=== PATIENT | male | born 1955 | race Caucasian/White ===

== ENCOUNTER 2021-03-16 07:03 | Day surgery (SDC) | payer OTHER ==
[2021-03-16] MEDS ORDERED: LIDOCAINE 4% TOP SOLUTION TOP ONE (07:30)
[2021-03-16] MEDS: Ringers Lactate 1,000 ML IV ONE ×2 (07:30→08:16)
[2021-03-16] MEDS ORDERED: Phenylephrine HCl 10 MG/ML 1 ML VIAL ONE (07:37)
[2021-03-16] MEDS ORDERED: GLYCOPYRROLATE 0.2 MG/ML SYR ONE ×2 (07:37→08:06)
[2021-03-16] MEDS ORDERED: LIDOCAINE 1% MPF 30 ML VIAL ONE ×2 (07:38→08:05)
[2021-03-16] MEDS ORDERED: LIDOCAINE VISCOUS 2% SOLN 15 ML UDC ONE (07:39)
[2021-03-16] MEDS ORDERED: propofoL 200 MG/20 ML VIAL IV ONE ×2 (08:05→08:52)
[2021-03-16] MEDS ORDERED: MIDAZOLAM HCL 2 MG/2 ML INJ ONE (08:05)
[2021-03-16] MEDS ORDERED: LIDOCAINE 4% TOP SOLUTION ONE (08:09)
--- NOTE | 2021-03-16 08:47 | P.PN ---
Date of Service: 03/16/21 Patient is 66 years of age was evaluated by me on February 17, 2021 the possibility of right endobronchial lesion please had no complaints and was scheduled for a bronchoscopy on 03/16/2021 Patient denies any complaints no coughing wheezing shortness of breath On examination is alert oriented prior to procedure chest shows diminished air entry cardiovascular system os sounds normal abdomen soft Patient was scheduled to have a bronchoscopy today otherwise no change from the H and P dated 02/09/2021
--- NOTE | 2021-03-16 08:48 | P.OP ---
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
--- NOTE | 2021-03-16 09:25 | RAD REPORT ---
EXAM DESCRIPTION: RAD - Fluoroscopy <1 Hour - 03/16/2021 9:09 am CLINICAL HISTORY: Device placement bronchoscope placement FINDINGS: A bronchoscope placed into the right upper lobe. Procedure performed by Dr. Florentino
--- NOTE | 2021-03-16 09:58 | RAD REPORT ---
EXAM DESCRIPTION: Sabiha Single View03/16/2021 9:51 am CLINICAL HISTORY: Device placement bronchoscopy IMPRESSION: A pneumothorax is not seen status post right bronchoscopy.
[2021-03-16 10:18] VITALS: BP 108/59; O2SAT 95
[2021-03-16 10:26] VITALS: TEMP 97.6
== END 2021-03-16 10:05 | disposition home or self-care (01) ==
LOC: OR 07:03
PROVIDERS: ATTEND Internal Medicine Sleep Medicine
PROC: 0BD48ZX Extraction of Right Upper Lobe Bronchus, Via Natural or Artificial Opening Endoscopic, Diagnostic (ICD-10-PCS; 2021-03-16)
PROC: 0B9C8ZX Drainage of Right Upper Lung Lobe, Via Natural or Artificial Opening Endoscopic, Diagnostic (ICD-10-PCS; principal; 2021-03-16 08:00)
DX: R91.1 Solitary pulmonary nodule (principal); Z20.822 Contact with and (suspected) exposure to COVID-19
CPT/HCPCS: 88108 ×2; 88305 ×2; 87015; 87206; 87116; 87102; 71045; 31624; 31625; U0002; J2704 ×2; J2370; J7120; 76000; J2250

== ENCOUNTER 2021-12-02 10:18 | Inpatient (IN) | payer OTHER ==
--- OUTSIDE RECORDS SUMMARY | 2021-12-02 10:21 | XMS REPORT | Continuity of Care Document ---
:1955 Author Organization [facility] t Address [address] [place] [address] Care Team Providers Name Role Phone Hansel WINSLOW, A Primary Care Physician Hansel WINSLOW, A Attending Clinician Jimmy Attending Clinician Unavailable DEBORAH Attending Clinician Unavailable MD DEBORAH Y.H. Attending Clinician Unavailable Jimmy Admitting Clinician Unavailable DEBORAH Admitting Clinician Unavailable MD DEBORAH Y.H. 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 Formattin g of this note might be different from the original. Added automatic ally from request for surgery [id number] Hypertensi Hypertensi Disease Active U nivers on on ity of [facility] Arthritis Arthritis Disease Active Uni vers ity of [facility] Back pain Back pain Disease Active Overview: Univers Formattin ity of g of this [place] note Medical might be Branch different from the original. spinal cord stimulato r (not using now) and morphine pump Allergies, Adverse Reactions, Alerts Allergy Allergy Status Severity Reaction(s) Onset Inactive Treating Comm ents Source Name Type Date Date Clinician No Known DA Active U [facility] Allergie 1-14 [place] s 00:00: [address] No Known DA Active U [facility] Contrast [facility]- [place] Allergie 00:00: [address] No Known DA Active U [facility] Drug 2 [place] Allergie 00:00: [address] No Known DA Active U [facility] Food 2- [place] Allergie 00:00: [address] No Known DA Active U [facility] Other 2- [place] Allergie 00:00: [address] No Known DA Active U [facility] Drug 318 [place] Intolera 00:00: [address] Social History Social Habit Start Date Stop Date Quantity Comments Source History of tobacco Cigarette Smoker University of use [facility] History SDNC University o f Alcohol Frequency [facility] History SDOH University o f Alcohol Std Drinks [facility] History [facility] University o f Alcohol Binge [facility] [place] Alcohol intake 2021-12-02 2021-12-02 Current drinker Unive rsity of 00:00:00 00:00:00 of alcohol [facility] (finding) Branch Tobacco Comment 2021-07-16 2021-07-16 1 pack x 50 yrs Univ ersity of 00:00:00 00:00:00 [facility] Alcohol Comment 2017-02-22 2017-02-22 occasional Universit y of 00:00:00 00:00:00 alcohol use [facility] Cigarettes smoked 2015-01-05 2015-01-05 Univers ity of current (pack per 00:00:00 00:00:00 [facility] ) - Reported Branch Cigarette 2015-01-05 2015-01-05 University of pack-years 00:00:00 00:00:00 [facility] Tobacco use and 2015-01-05 2015-01-05 Former user Universi ty of exposure 00:00:00 00:00:00 [facility] Sex [birth year] Universit y of 00:00:00 00:00:00 [facility] Smoking Status Start Date Stop Date Source Current every day smoker 2015-01-05 00:00:00 Uni versity of [facility] Medications Ordered Filled Start Stop Current Ordering Indication Dosage Frequency Signature Comments Components Source Medication Medication Date Date Medication? Clinician (SIG) Name Name pregabalin Yes 200mg Take 200 Un kamran (LYRICA) 75 5-12 mg by ity of mg capsule 08:58: mouth 3 [place] 11 (three) Medical times Branch daily. pregabalin Yes 200mg Take 200 Un kamran (LYRICA) 75 5-12 mg by ity of mg capsule 08:58: mouth 3 [place] 11 (three) Medical times Branch daily. tiZANidine 2020-07 Yes 4mg Take 4 mg Un kamran (ZANAFLEX) 2-26 by mouth 3 ity of 4 mg 13:09: (three) [place] capsule 20 times Medical daily. Branch MORPHINE 2020-07 Yes Inject as Uni vers SULFATE 2-26 directed. ity of (MORPHINE 13:09: Has pain [place] INJECTION) 20 pump Medical Branch etodolac 2020-07 Yes 400mg Take 400 Univ ers (LODINE) 2-26 mg by ity of 400 mg 13:09: mouth 2 [place] tablet 20 (two) Medical times Branch daily. HYDROcodone 2020-07 Yes 1{tbl} Take 1 Tab Univers -acetaminop 2-26 by mouth ity of hen (NORCO) 13:09: every 6 [place] 10-325 mg 20 (six) Medical tablet hours as Branch needed. tiZANidine 2020-07 Yes 4mg Take 4 mg Un kamran (ZANAFLEX) 2-26 by mouth 3 ity of 4 mg 13:09: (three) [place] capsule 20 times Medical daily. Branch MORPHINE 2020-07 Yes Inject as Uni vers SULFATE 2-26 directed. ity of (MORPHINE 13:09: Has pain [place] INJECTION) 20 pump Medical Branch etodolac 2020-07 Yes 400mg Take 400 Univ ers (LODINE) 2-26 mg by ity of 400 mg 13:09: mouth 2 [place] tablet 20 (two) Medical times Branch daily. HYDROcodone 2020-07 Yes 1{tbl} Take 1 Tab Univers -acetaminop 2-26 by mouth ity of hen (NORCO) 13:09: every 6 [place] 10-325 mg 20 (six) Medical tablet hours as Branch needed. amiodarone 2020-07 Yes 200mg Take 1 Univ ers 200 mg 2-26 tablet by ity of tablet 00:00: mouth [place] 00 daily. Medical Branch amiodarone 2020-07 Yes 200mg Take 1 Univ ers 200 mg 2-26 tablet by ity of tablet 00:00: mouth [place] 00 daily. Medical Branch levoFLOXaci 2020-07 Yes [id number] 500mg Take 1 Univers n 500 mg 1-16 tablet by ity of tablet 00:00: mouth [place] 00 every 24 Medical (twenty-fo Branch ur) hours. levoFLOXaci 2020-07 Yes [id number] 500mg Take 1 Univers n 500 mg 1-16 tablet by ity of tablet 00:00: mouth [place] 00 every 24 Medical (twenty-fo Branch ur) hours. metoprolol 2020-07 Yes [id number] 100mg Take 1 Univers succinate 1-08 tablet by ity o f XL 100 mg 00:00: mouth [place] 24 hr 00 every Medical tablet morning. Branch Call clinic for appointmen t. Needs appt for further refills. metoprolol 2020-07 Yes [id number] 100mg Take 1 Univers succinate 1-08 tablet by ity o f XL 100 mg 00:00: mouth [place] 24 hr 00 every Medical tablet morning. Branch Call clinic for appointmen t. Needs appt for further refills. HYDROCHLORO 2020-07 Yes [id number] TAKE 1 Univers THIAZIDE 25 0-20 TABLET BY ity of mg tablet 00:00: MOUTH [place] 00 EVERY DAY Medical Branch TRAZODONE 2020-07 Yes [id number] TAKE 1 U nivers 100 mg 0-20 TABLET BY ity of tablet 00:00: MOUTH AT [place] 00 BEDTIME. Medical Branch HYDROCHLORO 2020-07 Yes [id number] TAKE 1 Univers THIAZIDE 25 0-20 TABLET BY ity of mg tablet 00:00: MOUTH [place] 00 EVERY DAY Medical Branch TRAZODONE 2020-07 Yes [id number] TAKE 1 U nivers 100 mg 0-20 TABLET BY ity of tablet 00:00: MOUTH AT [place] 00 BEDTIME. Medical [place] Immunizations Ordered Filled Immunization Date Status Comments [facility] e Immunization Name Name SARS-COV-2 COVID-19 2020-10-27 Completed Unive rsity of MODERNA VACCINE 00:00:00 [facility] SARS-COV-2 COVID-19 2020-10-27 Completed Unive rsity of MODERNA VACCINE 00:00:00 [facility] SARS-COV-2 COVID-19 2020-10-02 Completed Unive rsity of MODERNA VACCINE 00:00:00 [facility] SARS-COV-2 COVID-19 2020-10-02 Completed Unive rsity of MODERNA VACCINE 00:00:00 [facility] Influenza Virus 2020-05-08 Completed Universit y of Vaccine Quad .5 mL 00:00:00 [facility] 6+ [place] Influenza Virus 2020-05-08 Completed Universit y of Vaccine Quad .5 mL 00:00:00 [facility] 6+ [place] Branch TDAP 2015-12-24 Completed University 00:00:00 [facility] TDAP 2015-12-24 Completed [facility] 00:00:00 [facility] Vital Signs Vital Name Observation Time Observation Value Comments Source Systolic blood 2021-12-02 14:40:00 94 mm[Hg] Univer sity of pressure [facility] Diastolic blood 2021-12-02 14:40:00 55 mm[Hg] Unive rsity of pressure [facility] Heart rate 2021-12-02 14:40:00 75 /min [facility] Body temperature 2021-12-02 14:40:00 36.22 Lizabeth [facility] Respiratory rate 2021-12-02 14:40:00 18 /min [facility] Body weight 2021-12-02 14:40:00 65.227 kg [facility] BMI 2021-12-02 14:40:00 19.50 kg/m2 [facility] Oxygen saturation in 2021-12-02 14:40:00 94 /min [facility] Arterial blood by [facility] Pulse oximetry Branch Procedures This patient has no known procedures. Plan of Care Planned Activity Planned Date Details Comments Source Encounters Start End Encounter Admission Attending Care Care Encounter Source Date/Time Date/Time Type Type Clinicians Facility Department ID 2021-12-02 2021-12-02 Office Hansel PAKAN [id number] [facility] 09:00:00 09:20:00 Visit Piedad [id number] [id number] Soterobharat wilder ANURAG [id number] Oh dical NAL [address] [place] [address] 2021-08-07 2021-08-08 Inpatient KHUSHBU BrushWU TELE [id number] [facility] 04:50:00 12:40:[id number] [facility] 2021-08-07 2021-08-08 Inpatient KHUSHBU BrushWOmar TELE [id number] [facility] 04:50:00 12:40:[address] [facility] 2021-06-25 2021-06-25 Outpatient [facility] [id number] [place] 00:00:00 00:00:[address] 2021-05-17 2021-06-01 Inpatient [facility] 021 [id number] [place] 00:00:00 00:00:00 [place] [address] 2021-05-27 2021-05-27 Outpatient [facility] [id number] [place] 00:00:00 00:00:00 EDWARD [address] 2021-05-13 2021-05-13 Outpatient [facility] [id number] [place] 00:00:00 00:00:00 EDWARD [address] 2021-05-06 2021-05-06 Outpatient [facility] [id number] [place] 00:00:00 00:00:00 EDWARD [address] 2021-04-12 2021-04-12 Outpatient [facility] [id number] [place] 00:00:00 00:00:00 EDWARD [address] 2021-04-08 2021-04-08 Outpatient CABRERAFORMERLY [facility], [facility] [id number] [place] 00:00:00 00:00:00 EDWARD [address] 2021-04-08 2021-04-08 Outpatient CABRERA, [facility] [id number] [place] 00:00:00 00:00:00 DANILO 6[address] [facility] 2021-04-08 2021-04-08 Outpatient [facility], [facility] [id number] [place] 00:00:00 00:00:00 DANILO [address] [facility] 2021-04-08 2021-04-08 Outpatient [facility], [facility] [id number] [place] 00:00:00 00:00:00 DANILO 019 [facility] 2021-04-08 2021-04-08 Outpatient [facility], [facility] [id number] [place] 00:00:00 00:00:00 DANILO [address] Results Test Description Test Time Test Comments Results Result Comments Source BASIC METABOLIC PANEL 2021-08-08 06:19:00 Test Item Value Reference Range Interpretation Comme nts SODIUM (test code = NA) 131 MMOL/L 137-145 L POTASSIUM (test code = K) 3.6 MMOL/L 3.5-5.1 N CHLORIDE (test code = CL) 98 MMOL/L 98-107 N CARBON DIOXIDE (test code = CO2) 27 MMOL/L 22-30 N ANION GAP (test code = GAP) 10 MMOL/L 14-24 L GLUCOSE (test code = GLU) 117 MG/DL 74-106 H BLOOD UREA NITROGEN (test code = 11 MG/DL 9-20 N BUN) GLOMERULAR FILTRATION RATE (test > 60 Reporting units: ml/min/1.73 code = GFR) m2 (Modified M DRD Formula)Referen ce Range: > or = 60 ml/min/1.7 3 m2 CREATININE (test code = CREAT) 0.50 MG/DL 0.66-1.25 L CALCIUM (test code = CA) 9.1 MG/DL 8.4-10.2 N CBC W/AUTO [id number] 06:15:00 Test Item Value Reference Range Interpretation Comments WHITE BLOOD CELL (test code = 18.2 K/MM3 3.8-9.8 H WBC) RED BLOOD CELL (test code = 3.81 M/MM3 3.95-5.67 L RBC) HEMOGLOBIN (test code = HGB) 12.2 G/DL 12.4-16.7 L HEMATOCRIT (test code = HCT) 36.8 % 35.9-49.5 N MEAN CELL VOLUME (test code = 97 fL 81.7-96.1 H MCV) MEAN CELL HGB (test code = MCH) 32.0 pg 27.6-33.2 N MEAN CELL HGB CONCETRATION 33.2 % 32.9-35.5 N (test code = MCHC) RED CELL DISTRIBUTION WIDTH 14.9 % 12.1-15.2 N (test code = RDW) PLATELET COUNT (test code = 479 K/MM3 129-368 H PLT) MEAN PLATELET VOLUME (test code 9.3 fl 7.4-10.4 N = MPV) NEUTROPHIL % (test code = NT%) 86.8 % 43-75 H IMMATURE GRANULOCYTE % (test 0.6 % 0.0-2.0 N code = IG%) LYMPHOCYTE % (test code = LY%) 4.1 % 14-44 L MONOCYTE % (test code = MO%) 8.1 % 4-13 N EOSINOPHIL % (test code = EO%) 0.1 % 0-6 N BASOPHIL % (test code = BA%) 0.3 % 0-2 N NUCLEATED RBC % (test code = 0.0 % 0-1.0 N NRBC%) NEUTROPHIL # (test code = NT#) 15.75 K/mm3 2.0-7.6 H IMMATURE GRANULOCYTE # (test 0.10 x10 3/uL 0-0.03 H code = IG#) LYMPHOCYTE # (test code = LY#) 0.75 K/mm3 1.0-3.8 L MONOCYTE # (test code = MO#) 1.47 K/mm3 0.1-0.8 H EOSINOPHIL # (test code = EO#) 0.02 K/mm3 0.0-0.2 N BASOPHIL # (test code = BA#) 0.06 K/mm3 0.0-0.2 N NUCLEATED RBC # (test code = 0.00 K/mm3 0.0-0.1 N NRBC#) [id number] 06:57:00 Test Item Value Reference Range Interpretation Comments ACT-ISTAT (test code = ACTI) 243 SEC 74-137 H BASIC METABOLIC [id number] 06:14:00 Test Item Value Reference Range Interpretation Comments SODIUM (test code = 138 MMOL/L 137-145 N NA) POTASSIUM (test code = 4.2 MMOL/L 3.5-5.1 N K) CHLORIDE (test code = 101 MMOL/L 98-107 N CL) CARBON DIOXIDE (test 34 MMOL/L 22-30 H code = CO2) GLUCOSE (test code = 95 MG/DL 74-106 N GLU) BLOOD UREA NITROGEN 14 MG/DL 9-20 N (test code = BUN) GLOMERULAR FILTRATION > 60 Report ing units: RATE (test code = GFR) ml/mi n/1.73 m2 (Modified MDRD Formula)Referen ce Range: > or = 6 0 ml/min/1.73 m2 CREATININE (test code 0.70 MG/DL 0.66-1.25 N = CREAT) CALCIUM (test code = 9.9 MG/DL 8.4-10.2 N CA) LIPID PROFILE (CORONARY RISK)2021-08-07 06:14:00 Test Item Value Reference Range Interpretation Comments TRIGLYCERIDES (test 116 MG/DL 150-199 L TRIGLYCE RIDES code = TRIG) REFERENCE RANGE:Normal: < 150 mg/dLBorderline High: 150-199 mg/dLHi gh: 200-499 mg/dLVe ry High: >=500 mg/ dL CHOLESTEROL (test code 162 MG/DL <200 = CHOL) HDL CHOLESTEROL (test 42 MG/DL 40-59 N code = HDL) LIPOPROTEIN LDL (test 82 MG/DL 0-99 N code = LDL) OPTIMAL........ .<100 mg/dLNEAR OPTIMAL/ABOVE OPTIMAL........ .100-12 9 mg/dL BORDERLINE HIGH.........13 0-159 mg/dL HIGH.........16 0-189 mg/dL VERY HIGH...... ...>/= 190 mg/dL [id number] 06:14:00 Test Item Value Reference Range Interpretation Comments MAGNESIUM (test code = MAG) 2.0 MG/DL 1.6-2.3 N PROTHROMBIN [id number] 06:03:00 Test Item Value Reference Range Interpretation Comments PROTHROMBIN TIME 12.4 SECONDS 9.5-12.7 N PATIENT (test code = PTP) INTERNATIONAL NORMAL 1.1 0.86-1.14 N The INR is to be RATIO (test code = used only for INR) monitoring oral anticoagulantth erap y. INDICATION I NR VALUE ---- ---- ---- -------1. Prophylaxis, de ep venous thrombos is, including hig h risk surgery. 2.0 - 3.0 2. Prophylaxis, de ep venous thrombos is, hip surgery, treatment for d eep venous thrombosis or pulmonary prevention of systemic emboli sm in patients wit h valvular heart disease, atrial fibrillation, tissue heart va lve, or acute myocar dial infarction. 2.0 - 3 .0 3. Mechanical prosthesis hear t valves, recurrent syste kris embolism. 3.0 - 4.5 PTT [id number] 06:03:00 Test Item Value Reference Range Interpretation Comments PTT ACTIVATED (test code = APTT) 37.5 SECONDS 25.1-36.5 H CBC W/AUTO [id number] 06:01:00 Test Item Value Reference Range Interpretation Comments WHITE BLOOD CELL (test code = 11.6 K/MM3 3.8-9.8 H WBC) RED BLOOD CELL (test code = 4.14 M/MM3 3.95-5.67 N RBC) HEMOGLOBIN (test code = HGB) 13.1 G/DL 12.4-16.7 N HEMATOCRIT (test code = HCT) 40.4 % 35.9-49.5 N MEAN CELL VOLUME (test code = 98 fL 81.7-96.1 H MCV) MEAN CELL HGB (test code = MCH) 31.6 pg 27.6-33.2 N MEAN CELL HGB CONCETRATION 32.4 % 32.9-35.5 L (test code = MCHC) RED CELL DISTRIBUTION WIDTH 15.1 % 12.1-15.2 N (test code = RDW) PLATELET COUNT (test code = 560 K/MM3 129-368 H PLT) MEAN PLATELET VOLUME (test code 8.9 fl 7.4-10.4 N = MPV) NEUTROPHIL % (test code = NT%) 77.5 % 43-75 H IMMATURE GRANULOCYTE % (test 0.7 % 0.0-2.0 N code = IG%) LYMPHOCYTE % (test code = LY%) 7.9 % 14-44 L MONOCYTE % (test code = MO%) 11.0 % 4-13 N EOSINOPHIL % (test code = EO%) 1.5 % 0-6 N BASOPHIL % (test code = BA%) 1.4 % 0-2 N NUCLEATED RBC % (test code = 0.0 % 0-1.0 N NRBC%) NEUTROPHIL # (test code = NT#) 8.98 K/mm3 2.0-7.6 H IMMATURE GRANULOCYTE # (test 0.08 x10 3/uL 0-0.03 H code = IG#) LYMPHOCYTE # (test code = LY#) 0.92 K/mm3 1.0-3.8 L MONOCYTE # (test code = MO#) 1.27 K/mm3 0.1-0.8 H EOSINOPHIL # (test code = EO#) 0.17 K/mm3 0.0-0.2 N BASOPHIL # (test code = BA#) 0.16 K/mm3 0.0-0.2 N NUCLEATED RBC # (test code = 0.00 K/mm3 0.0-0.1 N NRBC#) COVID 19 Asymptomatic IH [id number] 05:04:00 Test Item Value Reference Range Interpretation Comments COVID 19 NEGATIVE Negative "Negative resul ts from Asymptomatic IH AG patients with symptom (test code = onset beyondfiv e days, COVNONPUIAG) should be kandy anson as presumptive, andconfirmation with a molecular assay , if necessary forpa tient management may be performed. Nega tive results do notr ule out COVID-19 and sh ould not be used as the sole basisfor treatm ent or patient managem ent decisions, includinginfect ion control decisio ns. Negative result s should beconsidered in the context of a pa tients recent exposure s,history, and the presenc e of clinical signs and symptomsconsist ent with COVID-19.This t est detects both vi able andnon-viable S ARS-CoV and SARS CoV-2. Test performance dep endson the amount of virus (antigen) in the sample." Spec Comments: [id number] (COVID-19) RNA [Presence] in Respiratory specimen by VIRGINIE with probe [id number] 00:29:52 Test Item Value Reference Range Interpretation Comments SARS-CoV-2 (COVID-19) RNA Not detected Not-Detected [Presence] in Respiratory specimen by VIRGINIE with probe detection (test code = 62762-2) Whether patient is employed in a healthcare setting (test code = 98924-5) Whether the patient has symptoms related to condition of interest (test code = 30023-1) Patient was hospitalized because of this condition (test code = 73160-2) Whether the patient was admitted to intensive care unit (ICU) for condition of interest (test code = 88066-0) Whether patient resides in a congregate care setting (test code = 31189-5) SARS-CoV-2 (COVID-19) RNA [Presence] in Respiratory specimen by VIRGINIE with probe [id number] 15:40:55 Test Item Value Reference Range Interpretation Comments SARS-CoV-2 (COVID-19) RNA Not detected Not-Detected [Presence] in Respiratory specimen by VIRGINIE with probe detection (test code = 84814-8) Whether patient is employed in a healthcare setting (test code = 19312-7) Whether the patient has symptoms related to condition of interest (test code = 64470-5) Patient was hospitalized because of this condition (test code = 80879-5) Whether the patient was admitted to intensive care unit (ICU) for condition of interest (test code = 17441-0) Whether patient resides in a congregate care setting (test code = 53712-1) SARS-CoV-2 (COVID-19) RNA [Presence] in Respiratory specimen by VIRGINIE with probe [id number] 00:51:54 Test Item Value Reference Range Interpretation Comments SARS-CoV-2 (COVID-19) RNA Not detected Not-Detected [Presence] in Respiratory specimen by [place]IR[place]IE with probe detection (test code = 98281-3) Whether patient is employed in a healthcare setting (test code = 88533-4) Whether the patient has symptoms related to condition of interest (test code = 79561-6) Patient was hospitalized because of this condition (test code = 09457-0) Whether the patient was admitted to intensive care unit (ICU) for condition of interest (test code = 24867-2) Whether patient resides in a congregate care setting (test code = 89704-2)
--- NOTE | 2021-12-02 12:02 | RAD REPORT ---
EXAM DESCRIPTION: RAD - Chest Single View - 12/02/2021 11:54 am CLINICAL HISTORY: CHEST PAIN COMPARISON: Chest Pa And Lat (2 Views) dated 06/11/2021; Chest Single View dated 03/16/2021; Chest Ab domen Pelvis W Cont dated 06/24/2021 FINDINGS: Lines: None. Lungs: Right basilar consolidation and/or mass with increased volume. The left lung is clear. Pleural: Right-sided pleural effusion. Cardiac: The heart size is within normal limits. Bones: No acute fractures. Spinal stimulator. Other: IMPRESSION: Opacification of the right lung base could be a combination of factors including pleural fluid, consolidated lung, and/or mass given the patient's history. CT could better delineate if james cated. The left lung is clear.
[2021-12-02 12:10] LABS: RBC Red Blood Cell Count 3.74 M/uL (4.33-5.43)
[2021-12-02 12:18] LABS: Absolute Lymphocytes (CBC) 0.5 K/uL (0.7-4.9); Hematocrit 33.8 % (39.6-49.0); Lymphocytes % 1.4 % (15.3-44.8); MPV 7.9 fL (7.6-11.3)
[2021-12-02 12:35] LABS: AST/SGOT 12 U/L (15-37); Albumin 1.9 g/dL (3.4-5.0); Alkaline Phosphatase 112 U/L (45-117); BUN Blood Urea Nitrogen 22 mg/dL (7-18); Bicarbonate 27 mmol/L (21-32); Bilirubin Direct 0.3 mg/dL (0-0.2); Bilirubin Total 0.5 mg/dL (0.2-1.0); Glomerular Filtration Rate 99 ml/min (=/>90); Glucose Level 97 mg/dL (74-106); Magnesium 2.1 mg/dL (1.8-2.4); NT PRO-BNP 1742 pg/mL (<125); Potassium 3.1 mmol/L (3.5-5.1); Protein, Total 7.1 g/dL (6.4-8.2); Sodium Level 135 mmol/L (136-145); Troponin High Sensitivity 13.8 pg/mL (<58.9)
[2021-12-02 12:38] LABS: ALT/SGPT < 10 U/L (12-78)
[2021-12-02 12:46] LABS: Blood Morphology Comment NOT SEEN (NOT SEEN); Platelet Estimate ADEQ
--- NOTE | 2021-12-02 14:10 | RAD REPORT ---
EXAM DESCRIPTION: CT - Chest For Pe Angio - 12/02/2021 1:51 pm CLINICAL HISTORY: sob COMPARISON: October 2021 TECHNIQUE: Dynamically enhanced axial 3 mm thick images of the chest were obtained during administra tion of <100> mL Isovue 370 IV contrast. Coronal and oblique reconstruction images were generated and reviewed. Exam utilizes a protocol for optimal evaluation of pulmonary arterial tree. Maximum intensity projections 3D imaging was utilized All CT scans are performed using dose optimization technique as appropriate and may include automated exposure control or mA/KV adjustment according to patient size. FINDINGS: A pulmonary embolus is not seen. A thoracic aortic aneurysm is not noted. A small right pleural effusion. A pericardial effusion is not seen. 9.6 centimeter right lower lobe opacity. Mild surrounding alveolar opacities. Sub centimeter right lo wer lobe nodule COPD IMPRESSION: Negative for a pulmonary embolism. Large right lower lobe opacity with right lung volume loss. This represents atelectasis. Bronchoscopy would be helpful to evaluate for an obstructing endobronchial lesion.
--- NOTE | 2021-12-02 14:51 | ER ---
Nurse's Notes [facility] Name: Pablito Palomo Age: 66 yrs Sex: Male : 1955 Arrival Date: 12/02/2021 Time: 10:33 Bed 16 Private MD: Piedad Gomez Diagnosis: Shortness of breath;Other pneumonia, unspecified organism;History of lung cancer Presentation: 12/02 10:53 Chief complaint: Spouse and/or significant other states: pt has not been eating much iw for past 2-3 weeks, has gone from 160-143 pounds, has been very congestion, hx of lung cancer and last chemo treatment was in September, was seen at PCP office today and had low BP readings of 88/40 , pt states he has no appetite. Coronavirus screen: At this time, the client does not indicate any symptoms associated with coronavirus-19. Ebola Screen: Patient negative for fever greater than or equal to 101.5 degrees Fahrenheit, and additional compatible Ebola Virus Disease symptoms Patient denies exposure to infectious person. Patient denies travel to an Ebola-affected area in the 21 days before illness onset. No symptoms or risks identified at this time. Initial Sepsis Screen: Does the patient meet any 2 criteria? No. Patient's initial sepsis screen is negative. Does the patient have a suspected source of infection? No. Patient's initial sepsis screen is negative. Risk Assessment: Do you want to hurt yourself or someone else?. Onset of symptoms was November 21, 2021. 10:53 Method Of Arrival: Ambulatory iw 10:53 Acuity: SANJANA 3 iw Historical: - Allergies: 10:56 No Known Allergies; iw - Home Meds: 10:57 amiodarone 200 mg Oral tab 1 tab once daily [Active]; etodolac 200 mg Oral cap 1 cap 2 iw times per day [Active]; hydrochlorothiazide 25 mg Oral tab 1 tab once daily [Active]; metoprolol tartrate 100 mg Oral tab 1 tab once daily [Active]; amlodipine 10 mg tab 1 tab once daily [Active]; hydrocodone-acetaminophen 7.5-325 mg oral tab three times a day [Active]; pregabalin 200 mg Oral cap 1 cap 3 times per day [Active]; tizanidine 4 mg oral tab daily [Active]; trazodone 100 mg Oral tab 1 tab once daily [Active]; aspirin 81 mg Oral TbEC 1 tab once daily [Active]; atorvastatin 40 mg oral tab 1 tab once daily [Active]; clopidogrel 75 mg oral tab 1 tab once daily [Active]; 10:59 morphine pump [Active]; iw - PMHx: 10:59 lung cancer; Hypertensive disorder; Hypercholesterolemia; iw - PSHx: 10:59 right upper lobectomy; cardiac stent X 4; iw - Immunization history:: Adult Immunizations unknown. - Social history:: Smoking status: . Screenin:27 Abuse screen: Denies threats or abuse. Denies injuries from another. Nutritional ph screening: No deficits noted. Tuberculosis screening: No symptoms or risk factors identified. Fall Risk None identified. Assessment: 12:51 General: Appears in no apparent distress. comfortable, slender, well groomed, Behavior ph is calm, cooperative, appropriate for age, Reports fatigue for. Pain: Denies pain. Neuro: Level of Consciousness is awake, alert, obeys commands, Oriented to person, place, time, situation. Cardiovascular: Capillary refill is sluggish in bilateral fingers Patient's skin is warm and dry. Rhythm is sinus rhythm. Respiratory: Reports shortness of breath Airway is patent Respiratory effort is even, unlabored. GI: No signs and/or symptoms were reported involving the gastrointestinal system. Derm: Skin is intact, Skin is dusky. Musculoskeletal: Circulation, motion, and sensation intact. Range of motion: intact in all extremities. 14:00 Reassessment: Patient appears in no apparent distress at this time. Patient and/or ph family updated on plan of care and expected duration. Pain level reassessed. Patient is alert, oriented x 3, equal unlabored respirations, skin warm/dry/pink. 15:00 Reassessment: Patient appears in no apparent distress at this time. Patient and/or ph family updated on plan of care and expected duration. Pain level reassessed. Patient is alert, oriented x 3, equal unlabored respirations, skin warm/dry/pink. 16:06 Reassessment: Patient appears in no apparent distress at this time. Patient and/or ph family updated on plan of care and expected duration. Pain level reassessed. Patient is alert, oriented x 3, equal unlabored respirations, skin warm/dry/pink. Pt resting comfortably, Dr Rai at bedside to speak w/ pt, awaiting inpatient room. 17:33 Reassessment: Patient appears in no apparent distress at this time. Patient and/or ph family updated on plan of care and expected duration. Pain level reassessed. Patient is alert, oriented x 3, equal unlabored respirations, skin warm/dry/pink. 20:32 Reassessment: attempted to call report to 2nd floor. nurse unavailable at this time. sm5 Vital Signs: 10:53 BP 115 / 58; Pulse 78; Resp 16; Temp 99.1; Weight 64.86 kg; iw 12:49 BP 122 / 62; Pulse 71; Resp 18; Pulse Ox 94% on 2 lpm NC; ph 14:00 BP 111 / 69; Pulse 51; Resp 18; Pulse Ox 97% on 2 lpm NC; ph 15:00 BP 123 / 63; Pulse 74; Resp 20; Pulse Ox 97% on 2 lpm NC; ph 16:00 BP 114 / 53; Pulse 75; Resp 16; Pulse Ox 96% on R/A; ph 17:29 BP 112 / 52; Pulse 79; Resp 18; Pulse Ox 100% on R/A; Height 6 ft. 0 in. (182.88 cm); ph 17:29 Body Mass Index 19.39 (64.86 kg, 182.88 cm) ph Vitals: 12:49 Cardiac Rhythm Assessment Sinus rhythm. ED Course: 10:33 Patient arrived in ED. mr 10:34 Piedad Gomez is Private Physician. mr 10:51 Howie Cosme DO is Attending Physician. ms3 10:55 Triage completed. iw 10:56 Arm band placed on. iw 11:13 Beverly Cordova, RN is Primary Nurse. ph 11:13 Bed in low position. Call light in reach. Side rails up X 1. Door closed. Noise mb7 minimized. 11:55 XRAY Chest (1 view) In Process Unspecified. EDMS 12:03 Inserted saline lock: 20 gauge in left forearm, using aseptic technique. mb7 13:52 CT Chest For PE Angio In Process Unspecified. EDMS 14:50 Darrius Rai MD is Hospitalizing Provider. ms3 17:32 No provider procedures requiring assistance completed. Patient admitted, IV remains in ph place. Administered Medications: 16:03 Drug: Rocephin (cefTRIAXone) 1 grams Route: IV; Rate: calculated rate; Site: right ph forearm; 16:35 Follow up: Response: No adverse reaction; IV Status: Completed infusion ph Medication: 16:15 VIS not applicable for this client. ph Outcome: 14:50 Decision to Hospitalize by Provider. ms3 21:18 Admitted to Med/surg accompanied by tech, via stretcher, with chart. 5 21:18 Condition: stable 21:18 Instructed on the need for admit. 21:18 Patient left the ED. [email or web address] Signatures: Dispatcher [employer] EDAR Karen Gray Irene, RN RN Beverly Cordova RN RN Howie Cosme DO DO msElva AlexussailajaKaren Cathleen Cruz, RN RN [email or web address]
--- NOTE | 2021-12-02 14:51 | EDPHYS ---
Physician Documentation [facility] Name: Pablito Palomo Age: 66 yrs Sex: Male : 1955 Arrival Date: 12/02/2021 Time: 10:33 Bed 16 Private MD: Piedad Gomez ED Physician Howie Cosme HPI: 12/02 13:07 This 66 yrs old Male presents to ER via Ambulatory with complaints of Low BP, Weight ms3 Loss. 13:07 The patient or guardian reports Congestion. Onset: The symptoms/episode began/occurred ms3 acutely, 3 week(s) ago. Modifying factors: The symptoms are alleviated by nothing. the symptoms are aggravated by nothing. Associated signs and symptoms: Pertinent negatives: chest pain, nausea, vomiting. Severity of symptoms: At their worst the symptoms were moderate in the emergency department the symptoms are unchanged Pain is currently a 0 / 10. 66-year-old male with past medical history of pretension, lung cancer, coronary artery disease presents for 2 to 3 weeks of decreased appetite, congestion with cough, chills, chest pain, shortness of breath. Patient denies pain at this time. Patient denies alleviating or inciting factors. Patient saw his primary care physician today blood pressure was noted to be low and was sent to the emergency department. Historical: - Allergies: 10:56 No Known Allergies; iw - Home Meds: 10:57 amiodarone 200 mg Oral tab 1 tab once daily [Active]; etodolac 200 mg Oral cap 1 cap 2 iw times per day [Active]; hydrochlorothiazide 25 mg Oral tab 1 tab once daily [Active]; metoprolol tartrate 100 mg Oral tab 1 tab once daily [Active]; amlodipine 10 mg tab 1 tab once daily [Active]; hydrocodone-acetaminophen 7.5-325 mg oral tab three times a day [Active]; pregabalin 200 mg Oral cap 1 cap 3 times per day [Active]; tizanidine 4 mg oral tab daily [Active]; trazodone 100 mg Oral tab 1 tab once daily [Active]; aspirin 81 mg Oral TbEC 1 tab once daily [Active]; atorvastatin 40 mg oral tab 1 tab once daily [Active]; clopidogrel 75 mg oral tab 1 tab once daily [Active]; 10:59 morphine pump [Active]; iw - PMHx: 10:59 lung cancer; Hypertensive disorder; Hypercholesterolemia; iw - PSHx: 10:59 right upper lobectomy; cardiac stent X 4; iw - Immunization history:: Adult Immunizations unknown. - Social history:: Smoking status: . ROS: 13:07 Eyes: Negative for injury, pain, redness, and discharge. ms3 13:07 Abdomen/GI: Negative for abdominal pain, nausea, vomiting, diarrhea, and constipation, MS/Extremity: Negative for injury and deformity, Skin: Negative for injury, rash, and discoloration. 13:07 Constitutional: Positive for chills. 13:07 Eyes: 13:07 Cardiovascular: Positive for chest pain. 13:07 Respiratory: Positive for cough. 13:07 All other systems are negative. Exam: 12:02 ECG was reviewed by the Attending Physician. ms3 13:07 Constitutional: This is a well developed, well nourished patient who is awake, alert, ms3 and in no acute distress. Eyes: Pupils equal round and reactive to light, extra-ocular motions intact. Lids and lashes normal. Conjunctiva and sclera are non-icteric and not injected. Periorbital areas with no swelling, redness, or edema. ENT: Nares patent. No nasal discharge, no septal abnormalities noted. Tympanic membranes are normal and external auditory canals are clear. Oropharynx with no redness, swelling, or masses, exudates, or evidence of obstruction, uvula midline. Mucous membranes moist. Neck: Trachea midline, no cervical lymphadenopathy. Supple, full range of motion without nuchal rigidity, or vertebral point tenderness. No Meningismus. Chest/axilla: Normal chest wall appearance and motion. Nontender with no deformity. Cardiovascular: Regular rate and rhythm with a normal S1 and S2. No gallops, murmurs, or rubs. Normal PMI, no JVD. No pulse deficits. Respiratory: Lungs have equal breath sounds bilaterally, clear to auscultation and percussion. No rales, rhonchi or wheezes noted. No increased work of breathing, no retractions or nasal flaring. Abdomen/GI: Soft, non-tender, with normal bowel sounds. No distension or tympany. No guarding or rebound. No evidence of tenderness throughout. Skin: Warm, dry with normal turgor. Normal color with no rashes, no lesions, and no evidence of cellulitis. MS/ Extremity: Pulses equal, no cyanosis. Neurovascular intact. Full, normal range of motion. Psych: Awake, alert, with orientation to person, place and time. Behavior, mood, and affect are within normal limits. Vital Signs: 10:53 BP 115 / 58; Pulse 78; Resp 16; Temp 99.1; Weight 64.86 kg; iw 12:49 BP 122 / 62; Pulse 71; Resp 18; Pulse Ox 94% on 2 lpm NC; ph 14:00 BP 111 / 69; Pulse 51; Resp 18; Pulse Ox 97% on 2 lpm NC; ph 15:00 BP 123 / 63; Pulse 74; Resp 20; Pulse Ox 97% on 2 lpm NC; ph 16:00 BP 114 / 53; Pulse 75; Resp 16; Pulse Ox 96% on R/A; ph 17:29 BP 112 / 52; Pulse 79; Resp 18; Pulse Ox 100% on R/A; Height 6 ft. 0 in. (182.88 cm); ph 17:29 Body Mass Index 19.39 (64.86 kg, 182.88 cm) ph MDM: 11:15 Patient medically screened. ms3 13:07 Differential diagnosis: bronchitis, URI, PNA vs ACS. ms3 22:02 Data reviewed: vital signs, nurses notes, lab test result(s), EKG, radiologic studies. ms3 Data interpreted: Pulse oximetry: on 3L(s) per nasal canula, is 100 %. Interpretation: normal. Counseling: I had a detailed discussion with the patient and/or guardian regarding: the historical points, exam findings, and any diagnostic results supporting the discharge/admit diagnosis, lab results, radiology results, the need for further work-up and treatment in the hospital. ED course: Case discussed with Dr Florentino and he can perform bronchoscopy at [facility] if needed. Discussed case with Dr Rai and he accepts patient. All questions answered. Discussed plan for admission with patient and his and they understand/ agree with plan.. 12/02 11:33 Order name: Basic Metabolic Panel; Complete Time: 13:02 ms3 12/02 11:33 Order name: CBC with Diff; Complete Time: 13:02 ms3 12/02 11:33 Order name: LFT's; Complete Time: 13:02 ms3 05/12 11:33 Order name: Magnesium; Complete Time: 13:02 ms3 12/02 11:33 Order name: NT PRO-BNP; Complete Time: 13:02 ms3 12/02 11:33 Order name: Troponin HS; Complete Time: 13:02 ms3 12/02 12:24 Order name: Manual Differential; Complete Time: 13:02 EDMS 12/02 14:28 Order name: Blood Culture Adult (2) ms3 12/02 14:53 Order name: COVID-19 SARS RT PCR (Document "Date of Onset" if Symptomatic) ph 12/02 16:27 Order name: Urinalysis EDMS 12/02 16:27 Order name: CBC with Automated Diff EDMS 12/02 16:27 Order name: CBC with Automated Diff EDMS 12/02 16:27 Order name: Comprehensive Metabolic Panel EDMS 12/02 16:27 Order name: Comprehensive Metabolic Panel EDMS 12/02 11:33 Order name: XRAY Chest (1 view); Complete Time: 12:04 ms3 12/02 11:33 Order name: EKG; Complete Time: 11:34 ms3 12/02 11:33 Order name: Cardiac monitoring; Complete Time: 12:22 ms3 12/02 11:33 Order name: EKG - Nurse/Tech; Complete Time: 12:22 ms3 12/02 11:33 Order name: IV Saline Lock; Complete Time: 12:03 ms3 12/02 11:33 Order name: Labs collected and sent; Complete Time: 12:22 ms3 12/02 11:33 Order name: O2 Per Protocol; Complete Time: 11:50 ms3 12/02 11:33 Order name: O2 Sat Monitoring; Complete Time: 11:50 ms3 12/02 13:05 Order name: CT Chest For PE Angio; Complete Time: 14:22 ms3 12/02 16:26 Order name: CONS Physician Consult EDMS 12/02 16:27 Order name: Heart Healthy EDMS 12/02 16:27 Order name: Magnesium EDMS 12/02 16:27 Order name: Magnesium EDMS 12/02 16:41 Order name: Slides for Pathologist Review EDID EC:02 Rate is 71 beats/min. Rhythm is regular. QRS [place] is Normal. OK interval is normal. ms3 Clinical impression: NSR w/ Non-specific ST/T Changes. Interpreted by me. Administered Medications: 16:03 Drug: Rocephin (cefTRIAXone) 1 grams Route: IV; Rate: calculated rate; Site: right ph forearm; 16:35 Follow up: Response: No adverse reaction; IV Status: Completed infusion ph Disposition Summary: 12/02/21 14:50 Hospitalization Ordered Hospitalization Status: Inpatient Admission ms3 Provider: Darrius Rai ms3 Location: Telemetry/MedSurg (Inpatient) ms3 Condition: Stable ms3 Problem: new ms3 Symptoms: are unchanged ms3 Bed/Room Type: Standard ms3 Room Assignment: 221(12/02/21 20:15) cg Diagnosis - Shortness of breath ms3 - Other pneumonia, unspecified organism ms3 - History of lung cancer ms3 Forms: - Medication Reconciliation Form ms3 - SBAR form ms3 Signatures: Dispatcher [employer] Liz Tomas RN RN Beverly Cordova RN RN ph Garcia, Cindy, RN RN cg Sims, Marcus, DO DO ms3 Corrections: (The following items were deleted from the chart) 20:15 14:50 ms3 cg
[2021-12-02] MEDS ORDERED: CEFTRIAXONE 1000 MG/VIAL ONE (15:38)
[2021-12-02] MEDS ORDERED: NA CHLORIDE 0.9% 50 ML ONE (15:38)
[2021-12-02] MEDS ORDERED: ONDANSETRON 4 MG/2 ML VIAL IV PRN (16:24)
[2021-12-02] MEDS ORDERED: NA CHLORIDE 0.9% 1,000 ML IV SCH (17:00)
--- NOTE | 2021-12-02 17:00 | P.HP ---
Certification for Inpatient Patient admitted to: Inpatient With expected LOS: >2 Midnights Practitioner: I am a practitioner with admitting privileges, knowledge of patient current condition, hospital course, and medical plan of care. Services: Services provided to patient in accordance with Admission requirements found in Title 42 Section 412.3 of the Code of Federal Regulations Patient History Date of Service: 12/02/21 Reason for admission: pneumonia, atelectasis History of Present Illness: 66yo M, PMH: HTN, HLD, CAD s/p stentsx4 recently, lung cancer s/p lobectomy and chemo Presents to ED due to progressively worsening shortness of breath / dyspnea on exertion, anorexia, and weight loss over the last 2-3 weeks. Associated with mild cough, no blood. Self-medicated with OTC cough medication. Patient does not provide much more history. Per EMR, he apparently saw his PCP recently and found to have low BP : 80s/50s and told to come to ED. In the ED, he was found to have significant leukocytosis, CT revealed large R lower lobe opacity consistent with atelectasis. ED physician requests admission for further management, possibly required bronchoscopy. ED Physician spoke with Pulmonology who agreed. Allergies No Known Allergies Allergy (Verified 03/16/21 08:32) Home Medications: Amlodipine [Norvasc] 10 mg PO DAILY 02/22/21 Etodolac 400 mg PO BID 02/22/21 Hydrocodone Bit/Acetaminophen [Hydrocodon-Acetaminophen 5-325] 1 each PO Q6HP PRN 02/22/21 Metoprolol Succinate 100 mg PO DAILY 02/22/21 Pregabalin [Lyrica] 75 mg PO TID 02/22/21 Tizanidine [Zanaflex] 4 mg PO BEDTIME 02/22/21 Trazodone HCl 100 mg PO BEDTIME 02/22/21 hydroCHLOROthiazide [Hydrochlorothiazide] 25 mg PO DAILY 02/22/21 - Past Medical/Surgical History -: HTN -: HLD -: h/o lung cancer s/p lobectomy/chemo -: r lobectomy -: coronary stent x4 (07/13) - Family History Family History: Reviewed- Non-Contributory - Social History Smoking Status: Current some day smoker Alcohol use: No Place of Residence: Home Review of Systems 10-point ROS is otherwise unremarkable Physical Examination - Physical Exam General: Alert, In no apparent distress, Oriented x3, Other (thin) HEENT: Sclerae nonicteric Neck: Supple Respiratory: Diminished (right base), Crackles/rales (right base) Cardiovascular: No edema, Regular rate/rhythm Gastrointestinal: Soft and benign, Non-distended, No tenderness Integumentary: No tenderness/swelling Neurological: Normal speech, Normal affect ( / flat affect) - Studies Laboratory Data (last 24 hrs) 12/02/21 12:00: WBC 37.8 H*, Hgb 11.0 L, Hct 33.8 L, Plt Count 587 H 12/02/21 12:00: Sodium 135 L, Potassium 3.1 L, BUN 22 H, Creatinine 0.79, Glucose 97, Magnesium 2.1, Total Bilirubin 0.5, AST 12 L, ALT < 10 L, Alkaline Phosphatase 112 Assessment and Plan - Advance Directives Does patient have a Living Will: No Does patient have a Durable POA for Healthcare: No Physician Review Additional Text: Problem List Pneumonia R lung atelectasis h/o R lung cancer s/p lobectomy / chemo HTN HLD CAD s/p stents x4 lobectomy last year, last chemo was in ~september 2021 possibility of obstructive process pulm consulted, will further evaluate and determine if bronchoscopy needed coronary stents reportedly done in [place] 06/2021 according to patient, on aspirin/plavix continue zosyn, cover for potential post-obstructive pneumonia oxygen supplementation as needed patient with only SIRS 1/4 criteria IVF BP improved / WNL Code: full Dispo: home, ~3 days Time Spent Managing Pts Care (In Minutes): 75
[2021-12-02] MEDS: PIPER TAZO 3.375 GM in NA CHLORIDE 0.9% 100 ML IV SCH (22:01)
[2021-12-02 22:53] VITALS: BMI 19.3
[2021-12-03] MEDS: PIPER TAZO 3.375 GM in NA CHLORIDE 0.9% 100 ML IV SCH ×3 (03:13→17:04)
[2021-12-03] MEDS: HYDROCODONE/APAP 7.5/325 MG TAB PO PRN ×2 (05:08→16:19)
[2021-12-03 05:51] LABS: Absolute Lymphocytes (CBC) 0.6 K/uL (0.7-4.9); Hematocrit 27.6 % (39.6-49.0); Lymphocytes % 1.9 % (15.3-44.8); MPV 7.5 fL (7.6-11.3); RBC Red Blood Cell Count 3.13 M/uL (4.33-5.43)
[2021-12-03 06:05] LABS: AST/SGOT 10 U/L (15-37); Albumin 1.5 g/dL (3.4-5.0); Alkaline Phosphatase 90 U/L (45-117); BUN Blood Urea Nitrogen 17 mg/dL (7-18); Bicarbonate 32 mmol/L (21-32); Bilirubin Total 0.5 mg/dL (0.2-1.0); Glomerular Filtration Rate 106 ml/min (=/>90); Glucose Level 102 mg/dL (74-106); Magnesium 2.1 mg/dL (1.8-2.4); Protein, Total 5.9 g/dL (6.4-8.2); Sodium Level 136 mmol/L (136-145)
[2021-12-03 06:14] LABS: ALT/SGPT < 10 U/L (12-78); Potassium 2.8 mmol/L (3.5-5.1)
--- NOTE | 2021-12-03 06:23 | P.PN ---
Date of Service: 12/03/21 Subjective: no signficant change occasional cough dyspnea on exertion, ok at rest ROS: 10 point ROS as noted above, otherwise negative Physical exam GEN: Alert, oriented, NAD HEENT: Normal conjunctiva, sclera anicteric CV: Regular rate and rhythm, no edema Pulm: Nonlabored respirations on room air, crackles at R base ABD: Soft, nontender, nondistended Neuro: Normal speech, normal affect Problem List Pneumonia R lung atelectasis h/o R lung cancer s/p lobectomy / chemo HTN HLD CAD s/p stents x4 lobectomy last year, last chemo was in ~september 2021 possibility of obstructive process, but highly unlike, PET scan done ~5-6 weeks ago with no significant mass/lesion pulm consulted - no indication / plan for bronchoscopy at this time coronary stents reportedly done in [place] 06/2021 according to patient, on aspirin/plavix; continue prelim blood culture +GPC, change zosyn to cefepime/vanc oxygen supplementation as needed patient with only SIRS 1/4 criteria with significant leukocytosis gentle IVF, will decrease BP improved / WNL Code: full Dispo: home, ~2-3 days Time Spent Managing Pts Care (In Minutes): 35
[2021-12-03] MEDS: KCL 20 MEQ/100 mL IVPB 20 MEQ/100 ML BAG IV SCH ×3 (06:49→11:00)
[2021-12-03 07:07] LABS: Platelet Estimate INCR; Platelets, Giant 1+
[2021-12-03 07:08] LABS: Blood Morphology Comment NOTED (NOT SEEN); Hypochromasia 1+; Stomatocytes 1+
--- NOTE | 2021-12-03 07:15 | RAD REPORT ---
EXAM DESCRIPTION: RAD - Chest Single View - 12/03/2021 6:57 am CLINICAL HISTORY: Shortness of breath, COPD COMPARISON: CT chest December 02, portable chest December 02 TECHNIQUE: AP portable chest image was obtained 12/03/2021 6:57 am . FINDINGS: Large right lung base mass density has not changed. No failure or volume overload suspecte d. Extensive underlying fibro emphysematous changes are present. Heart and vasculature are normal. No pneumothorax. No left-sided pleural effusion. No acute bony abnormality seen. No acute aortic findin gs suspected. IMPRESSION: Dense right base opacification has not changed. Advanced COPD changes again noted.
[2021-12-03] MEDS: PREGABALIN 50 MG CAP PO SCH ×3 (10:10→20:01)
[2021-12-03] MEDS: CLOPIDOGREL 75 MG TABLET PO SCH (10:10)
[2021-12-03] MEDS: ASPIRIN EC 81 MG TAB PO SCH (10:10)
[2021-12-03] MEDS: ENOXAPARIN 40 MG/0.4 ML SQ SCH (10:13)
[2021-12-03] MEDS ORDERED: POTASSIUM CL SA 10 MEQ TAB PO ONE (10:26)
[2021-12-03 10:53] LABS: Urine Appearance CLEAR (Clear); Urine Color YELLOW (Yellow); Urine Glucose NEGATIVE (Negative); Urine Specific Gravity 1.025 (1.005-1.030)
[2021-12-03 11:01] LABS: Urine Blood NEGATIVE (Negative); Urine Protein NEGATIVE (Negative)
[2021-12-03 11:02] LABS: Urine Microscopic Reflex NO UMIC
[2021-12-03 11:17] LABS: Urine Bilirubin 2+ (Negative)
[2021-12-03] MEDS: DULERA 200/5 (MOMETASONE/FORMOTEROL) INHALER IH SCH ×2 (12:17→19:59)
--- NOTE | 2021-12-03 12:17 | P.CNS ---
Date of Consult: 12/03/21 Reason for Consult: Possible pneumonia Chief Complaint: pneumonia, atelectasis History of Present Illness: Patient is 66 years of age history of lung cancer s/p right lower lobe lobectomy and chemotherapy last in September also had some stents placed in his heart in feeling worse over the past 2-1/2 weeks with some fever cough worsening shortness of breath lack of appetite admitted with a diagnosis of pneumonia Allergies No Known Allergies Allergy (Verified 03/16/21 08:32) Home Medications: Amlodipine [Norvasc] 10 mg PO DAILY 02/22/21 Etodolac 400 mg PO BID 02/22/21 Hydrocodone Bit/Acetaminophen [Hydrocodon-Acetaminophen 5-325] 1 each PO Q6HP PRN 02/22/21 Metoprolol Succinate 100 mg PO DAILY 02/22/21 Pregabalin [Lyrica] 75 mg PO TID 02/22/21 Tizanidine [Zanaflex] 4 mg PO BEDTIME 02/22/21 Trazodone HCl 100 mg PO BEDTIME 02/22/21 hydroCHLOROthiazide [Hydrochlorothiazide] 25 mg PO DAILY 02/22/21 - Past Medical/Surgical History Diabetic: No -: HTN -: HLD -: h/o lung cancer s/p lobectomy/chemo -: r lobectomy -: coronary stent x4 (07/13) -: morphine pump RLQ - Social History Alcohol use: No CD- Drugs: No Caffeine use: Yes Place of Residence: Home Review of Systems 10-point ROS is otherwise unremarkable General: Weakness, Other (Loss of appetite) Respiratory: Cough, Shortness of Breath Physical Examination Temp Pulse Resp BP Pulse Ox 97.2 F 65 22 H 119/62 94 12/03/21 08:00 12/03/21 08:00 12/03/21 08:00 12/03/21 08:00 12/03/21 08:00 General: Alert, In no apparent distress, Oriented x3 Respiratory: Diminished (Diminished on the right side) Cardiovascular: No edema, Regular rate/rhythm, Normal S1 S2 Gastrointestinal: Normal bowel sounds, Soft and benign Laboratory Data (last 24 hrs) 12/02/21 12:00: WBC 37.8 H*, Hgb 11.0 L, Hct 33.8 L, Plt Count 587 H 05/12/22 12:00: Sodium 135 L, Potassium 3.1 L, BUN 22 H, Creatinine 0.79, Glucose 97, Magnesium 2.1, Total Bilirubin 0.5, AST 12 L, ALT < 10 L, Alkaline Phosphatase 112 - Problems (1) Right lower lobe pneumonia Current Visit: Yes Status: Acute Plan: Patient is 66 years of age admitted with 2-1/2 weeks of loss of appetite cough fever worsening shortness of breath right lower lobe lung mass a recent PET scan that was done in October did not show any evidence of cancer patient's white count is significantly elevated recommend changing to cefepime and vancomycin cultures are positive for gram-positive cocci in clusters high risk for opportunistic lung infection vital signs satisfactory oxygenation satisfactory DC IV fluids for now history of underlying COPD add inhaled bronchodilator for now I suspect his hypokalemia secondary to hydrochlorothiazide Qualifiers: Pneumonia type: due to unspecified organism Qualified Code(s): J18.9 - Pneumonia, unspecified organism
[2021-12-03] MEDS: BENZONATATE 100 MG CAP PO PRN (17:04)
[2021-12-03] MEDS ORDERED: VANCOMYCIN 1.5 GM in NA CHLORIDE 0.9% 500 ML IV SCH (18:00)
[2021-12-03] MEDS: POTASSIUM 25 MEQ EFFERV TAB PO SCH (20:01)
[2021-12-03] MEDS: CEFEPIME 1 GM in NA CHLORIDE 0.9% 100 ML IV SCH (20:01)
[2021-12-03] MEDS ORDERED: DOCUSATE NA 100 MG CAP PO PRN (22:31)
[2021-12-04 05:53] LABS: Absolute Lymphocytes (CBC) 0.6 K/uL (0.7-4.9)
[2021-12-04] MEDS ORDERED: VANCOMYCIN 1 GM in NA CHLORIDE 0.9% 250 ML IVPB SCH (06:00)
[2021-12-04 06:02] LABS: Hematocrit 28.4 % (39.6-49.0); Lymphocytes % 2.2 % (15.3-44.8); MPV 7.5 fL (7.6-11.3); RBC Red Blood Cell Count 3.21 M/uL (4.33-5.43)
[2021-12-04 06:05] LABS: Magnesium 1.9 mg/dL (1.8-2.4); Potassium 3.5 mmol/L (3.5-5.1)
[2021-12-04] MEDS: BENZONATATE 100 MG CAP PO PRN ×2 (06:12→22:26)
--- NOTE | 2021-12-04 06:50 | P.PN ---
Date of Service: 12/04/21 Subjective: improving, more energy, more appetite WBC downtrending febrile this morning ROS: 10 point ROS as noted above, otherwise negative Physical exam GEN: Alert, oriented, NAD HEENT: Normal conjunctiva, sclera anicteric CV: Regular rate and rhythm, no edema Pulm: Nonlabored respirations on 2L NC, crackles at R base ABD: Soft, nontender, nondistended Neuro: Normal speech, normal affect Problem List sepsis secondary to Pneumonia, community acquired R lung atelectasis h/o R lung cancer s/p lobectomy / chemo HTN HLD CAD s/p stents x4 lobectomy last year, last chemo was in ~september 2021; valves placed in R lung ~6 months ago possibility of obstructive process, but highly unlike, PET scan done ~5-6 weeks ago with no significant mass/lesion pulm consulted - no indication / plan for bronchoscopy at this time coronary stents reportedly done in [place] 06/2021 according to patient, continue aspirin/plavix prelim blood culture +GPC, changed zosyn to cefepime/vanc on 12/04 patient recently had chemo, reports h/o staph abscess years ago, no h/o MRSA, but is at risk oxygen supplementation as needed dc'd IVF 12/03 BP improved / WNL sepsis, without severe sepsis/shock repeat CXR in AM Leukocytosis downtrending Code: full Dispo: home, ~2 days Time Spent Managing Pts Care (In Minutes): 35
[2021-12-04] MEDS: DULERA 200/5 (MOMETASONE/FORMOTEROL) INHALER IH SCH ×2 (08:20→19:56)
[2021-12-04] MEDS: ASPIRIN EC 81 MG TAB PO SCH (08:21)
[2021-12-04] MEDS: CLOPIDOGREL 75 MG TABLET PO SCH (08:21)
[2021-12-04] MEDS: PREGABALIN 50 MG CAP PO SCH ×3 (08:21→19:56)
[2021-12-04] MEDS: ENOXAPARIN 40 MG/0.4 ML SQ SCH (08:22)
[2021-12-04] MEDS: POTASSIUM 25 MEQ EFFERV TAB PO SCH ×2 (08:22→19:56)
[2021-12-04] MEDS ORDERED: POTASSIUM CL SA 10 MEQ TAB PO SCH (09:00)
[2021-12-04] MEDS: CEFEPIME 1 GM in NA CHLORIDE 0.9% 100 ML IV SCH ×2 (09:17→19:55)
--- NOTE | 2021-12-04 14:56 | EKG ---
Test Date: 2021-12-02 Test Time: 12:02:38 [employer] Director: PH MEASUREMENT RESULTS: Intervals: Rate: 71 IA: 160 QRSD: 108 QT: 442 QTc: 480 [place]: P: 87 IA: 160 QRS: 73 T: 84 INTERPRETIVE STATEMENTS: Normal sinus rhythm Minimal voltage criteria for LVH, may be normal variant Septal infarct, age undetermined Abnormal ECG No previous ECG available for comparison Electronically Signed On 12-04-21 14:53:59 CDT by Rajesh Bradley
[2021-12-04] MEDS: VANCOMYCIN 1 GM in NA CHLORIDE 0.9% 250 ML IV SCH (19:55)
[2021-12-04] MEDS: HYDROCODONE/APAP 7.5/325 MG TAB PO PRN (22:26)
[2021-12-05] MEDS: HYDROCODONE/APAP 7.5/325 MG TAB PO PRN ×2 (05:16→21:19)
[2021-12-05] MEDS: BENZONATATE 100 MG CAP PO PRN ×2 (05:17→21:19)
[2021-12-05 05:56] LABS: Absolute Lymphocytes (CBC) 0.5 K/uL (0.7-4.9); Hematocrit 27.6 % (39.6-49.0); Lymphocytes % 2.3 % (15.3-44.8); MPV 7.4 fL (7.6-11.3); RBC Red Blood Cell Count 3.12 M/uL (4.33-5.43)
[2021-12-05 06:07] LABS: Potassium 3.7 mmol/L (3.5-5.1)
--- NOTE | 2021-12-05 06:31 | P.PN ---
Date of Service: 12/05/21 Subjective: feels slightly better requiring 2L NC still no new symptoms / worsening ROS: 10 point ROS as noted above, otherwise negative Physical exam GEN: Alert, oriented, NAD HEENT: Normal conjunctiva, sclera anicteric CV: Regular rate and rhythm, no edema Pulm: Nonlabored respirations on 2L NC, crackles at R base ABD: Soft, nontender, nondistended Neuro: Normal speech, normal affect Problem List sepsis secondary to Pneumonia, community acquired; with bacteremia (MRSA) R lung atelectasis h/o R lung cancer s/p lobectomy / chemo Chronic COPD, severe HTN HLD CAD s/p stents x4 lobectomy last year, last chemo was in ~september 2021; valves placed in R lung ~6 months ago possibility of obstructive process, but highly unlike, PET scan done ~5-6 weeks ago with no significant mass/lesion pulm consulted - no indication / plan for bronchoscopy at this time coronary stents reportedly done in [place] 06/2021 according to patient, continue aspirin/plavix Patient reports improvement of his symptoms. Remains mildly hypoxic, requiring oxygen supplementation, wean as tolerated Low-grade temperatures Blood culture grew MRSA Continue vancomycin, patient will need PICC line, at least 10 more days of antibiotics Repeat blood cultures ordered for today Chest x-ray unchanged Leukocytosis improving room air sats for home O2 medical social worker consulted - home O2, HH, IV Vanc Code: full Dispo: home, ~1-2 days pending PICC, repeat culture results, improvement, +/- home O2 Time Spent Managing Pts Care (In Minutes): 35
[2021-12-05 07:30] LABS: Anisocytosis SLIGHT; Blood Morphology Comment NOTED (NOT SEEN); Hypochromasia 2+; Platelet Estimate INCR; Platelets, Giant 2+; Poikilocytosis SLIGHT; White Blood Cell Scan OK (OK)
[2021-12-05 07:31] LABS: Stomatocytes 1+; Target Cells 1+; Teardrop Cell 1+
[2021-12-05] MEDS: CLOPIDOGREL 75 MG TABLET PO SCH (08:26)
[2021-12-05] MEDS: ENOXAPARIN 40 MG/0.4 ML SQ SCH (08:26)
[2021-12-05] MEDS: PREGABALIN 50 MG CAP PO SCH ×3 (08:26→21:14)
[2021-12-05] MEDS: POTASSIUM 25 MEQ EFFERV TAB PO SCH ×2 (08:26→21:15)
[2021-12-05] MEDS: CEFEPIME 1 GM in NA CHLORIDE 0.9% 100 ML IV SCH (08:26)
[2021-12-05] MEDS: DULERA 200/5 (MOMETASONE/FORMOTEROL) INHALER IH SCH ×2 (08:27→21:15)
[2021-12-05] MEDS: ASPIRIN EC 81 MG TAB PO SCH (08:27)
--- NOTE | 2021-12-05 08:37 | RAD REPORT ---
EXAM DESCRIPTION: RADChest Pa And Lat (2 Views)12/05/2021 7:36 am CLINICAL HISTORY: Cough COMPARISON: December 03, 2021 FINDINGS: Right lower lobe atelectasis/mass unchanged. Right lung volume loss Heart is normal size. The left lung is hyperaerated and clear of acute infiltrate. Bronchoscopy is recommended
[2021-12-05] MEDS: VANCOMYCIN 1 GM in NA CHLORIDE 0.9% 250 ML IV SCH (09:00)
[2021-12-05] MEDS ORDERED: VANCOMYCIN 1.5 GM in NA CHLORIDE 0.9% 500 ML IVPB ONE (10:00)
--- NOTE | 2021-12-05 10:21 | P.PN ---
Subjective Date of Service: 12/05/21 Chief Complaint: pneumonia, atelectasis, MRSA bacteremia Subjective: Improving (Patient is improving feeling better white count is declining no change in his x-ray blood cultures positive for MRSA) Review of Systems General: Weakness Respiratory: Shortness of Breath Physical Examination - Vital Signs Temperature: 99.7 F Blood Pressure: 109/59 Pulse: 74 Respirations: 18 Pulse Ox (%): 97 - Physical Exam General: Alert, Oriented x3 Respiratory: Diminished (Diminished on the right side) Cardiovascular: No edema, Regular rate/rhythm - Studies Microbiology Data (last 24 hrs): 12/02/21 15:50 Blood - Blood Aerobic Blood Culture - Final Meth Resistant Staph Aureus 12/02/21 15:50 Blood - Blood Blood Culture Gram Stain - Final 12/02/21 15:50 Blood - Blood Anaerobic Blood Culture - Final Assessment And Plan - Current Problems (Diagnosis) (1) Right lower lobe pneumonia Current Visit: Yes Status: Acute Plan: Patient is clinically improving White count is declining no change in his chest x-ray MRSA isolated in the blood recommend treatment with IV antibiotics for at least 10 days DC IV cefepime changed to p.o. levofloxacin follow-up chest x-ray in 2 weeks vital signs stable check daily room air pulse ox qualify for oxygen if needed due to underlying severe COPD Qualifiers: Pneumonia type: due to unspecified organism Qualified Code(s): J18.9 - Pneumonia, unspecified organism
[2021-12-05] MEDS: levoFLOXacin 750 MG TAB PO SCH (12:53)
[2021-12-05] MEDS: VANCOMYCIN 1.25 GM in NA CHLORIDE 0.9% 250 ML IV SCH (21:00)
[2021-12-06 05:55] LABS: Hematocrit 24.9 % (39.6-49.0); MPV 7.2 fL (7.6-11.3); RBC Red Blood Cell Count 2.84 M/uL (4.33-5.43)
[2021-12-06 06:00] LABS: Magnesium 1.8 mg/dL (1.8-2.4); Potassium 4.3 mmol/L (3.5-5.1)
[2021-12-06] MEDS ORDERED: MAGNESIUM SULFATE 1 gm IVPB 1 GM/100 ML BAG IV ONE (06:06)
--- NOTE | 2021-12-06 06:28 | P.PN ---
Date of Service: 12/06/21 Subjective: feels more tired / off today no worsening of any particular symptoms no acute events overnight ROS: 10 point ROS as noted above, otherwise negative Physical exam GEN: Alert, oriented, NAD HEENT: Normal conjunctiva, sclera anicteric CV: Regular rate and rhythm, no edema Pulm: Nonlabored respirations on 1L NC ABD: Soft, nontender, nondistended Neuro: Normal speech, normal affect Problem List sepsis secondary to Pneumonia, community acquired; with bacteremia (MRSA) R lung atelectasis h/o R lung cancer s/p lobectomy / chemo Chronic COPD, severe HTN HLD CAD s/p stents x4 lobectomy last year, last chemo was in ~september 2021; valves placed in R lung ~6 months ago possibility of obstructive process, but highly unlike, PET scan done ~5-6 weeks ago with no significant mass/lesion pulm consulted - no indication / plan for bronchoscopy at this time coronary stents reportedly done in [place] 06/2021 according to patient, continue aspirin/plavix Patient reports improvement of his symptoms. Remains mildly hypoxic, requiring oxygen supplementation, wean as tolerated Low-grade temperatures Blood culture grew MRSA 07/27 Continue vancomycin, patient will need PICC line ID consulted f/u repeat blood cultures obtained 12/06 Leukocytosis improving room air sats for home O2 psychologist social consulted - home O2, HH, IV antibiotics Code: full Dispo: home, ~1 day pending PICC, repeat culture results, improvement, +/- home O2 Time Spent Managing Pts Care (In Minutes): 35
[2021-12-06] MEDS: BENZONATATE 100 MG CAP PO PRN ×2 (06:40→21:33)
[2021-12-06] MEDS: DULERA 200/5 (MOMETASONE/FORMOTEROL) INHALER IH SCH ×2 (08:13→21:33)
[2021-12-06] MEDS: ENOXAPARIN 40 MG/0.4 ML SQ SCH (08:13)
[2021-12-06] MEDS: PREGABALIN 50 MG CAP PO SCH ×3 (08:14→21:33)
[2021-12-06] MEDS: ASPIRIN EC 81 MG TAB PO SCH (08:14)
[2021-12-06] MEDS: CLOPIDOGREL 75 MG TABLET PO SCH (08:14)
[2021-12-06] MEDS: levoFLOXacin 750 MG TAB PO SCH (08:14)
[2021-12-06] MEDS: POTASSIUM 25 MEQ EFFERV TAB PO SCH ×2 (08:14→21:32)
[2021-12-06] MEDS: VANCOMYCIN 1.25 GM in NA CHLORIDE 0.9% 250 ML IV SCH ×2 (10:37→21:32)
--- NOTE | 2021-12-06 15:22 | P.CNS ---
Date of Consult: 12/06/21 Chief Complaint: pneumonia, atelectasis, MRSA bacteremia History of Present Illness: The patient is a 66-year-old male with a past medical history of tobacco use x40 years, hypertension, hyperlipidemia, CAD status post stent placement x4 in July 2021, lung cancer status post lobectomy and chemo who presented to the emergency department secondary to progressive fully worsening shortness of breath, dyspnea on exertion, and weight loss over the past 2 to 3 weeks. Patient states that the cough has been going on for about a month and is productive of sputum that ranges from white to yellow. Patient is currently still smoking. Blood cultures obtained on 12/02 grew methicillin-resistant Staph aureus in 1 out of 4 bottles, repeat cultures obtained on 12/05 showed no growth. Transthoracic echocardiogram is pending. Chest x-ray still showed A fixation of the right lung base concerning for atelectasis versus mass versus PNA. Radiologist recommended bronchoscopy. Patient currently reports shortness of breath however is aerating well on room air. He denies nausea/vomiting /diarrhea, or chest pain. Allergies No Known Allergies Allergy (Verified 03/16/21 08:32) Home Medications: Amiodarone HCl 200 mg PO DAILY 12/03/21 Amlodipine Besylate 1 tab PO DAILY 12/03/21 Aspirin 1 tab PO DAILY 12/03/21 Atorvastatin Calcium 1 tab PO BEDTIME 12/03/21 Clopidogrel Bisulfate [Plavix] 75 mg PO DAILY 12/03/21 Etodolac 1 tab PO BID 12/03/21 Hydrocodone 7.5/APAP 325 [[place] 7.5/325 mg*] 1 tab PO TID 12/03/21 Mecobalamin [B12 Active] 1 tab PO DAILY 12/03/21 Metoprolol Tartrate 1 tab PO DAILY 12/03/21 Pregabalin [Lyrica] 200 mg PO TID 12/03/21 Tizanidine HCl 1 tab PO DAILY 12/03/21 Trazodone HCl 100 mg PO BEDTIME 12/03/21 hydroCHLOROthiazide [Hydrochlorothiazide] 1 tab PO DAILY 12/03/21 - Past Medical/Surgical History Diabetic: No -: HTN -: HLD -: h/o lung cancer s/p lobectomy/chemo -: r lobectomy -: coronary stent x4 (07/13) -: morphine pump RLQ - Social History Alcohol use: No CD- Drugs: No Caffeine use: Yes Place of Residence: Home Review of Systems 10-point ROS is otherwise unremarkable Physical Examination Temp Pulse Resp BP Pulse Ox 98.0 F 68 18 116/59 L 92 12/06/21 12:00 12/06/21 12:00 12/06/21 12:00 12/06/21 12:00 12/06/21 12:00 General: Alert, In no apparent distress, Cachectic HEENT: Atraumatic Neck: 2+ carotid pulse no bruit Respiratory: Other (Diminished lung sounds bilaterally) Cardiovascular: Regular rate/rhythm Gastrointestinal: Normal bowel sounds, Soft and benign Musculoskeletal: No clubbing, No swelling, No contractures Integumentary: No rashes, No breakdown, No significant lesion Conclusions/Impression: Antibiotics: Levaquin: 12/05current Vancomycin: 12/05current Assessment/plan Gram-positive bacteremia Blood cultures obtained on 12/02 grew MRSA in 1 out of 4 bottles. Repeat cultures show no growth. TTE is pending. Low pubic predictive value for endocarditis. Patient denies history of IV drug abuse, valvular abnormality, permanent cardiac device/prosthetic material. In addition, blood cultures cleared after 48 hours. Recommend continuing IV Levaquin for 2 weeks from 12/05. Source of infection is unclear, patient denies any open skin wounds. Could be secondary to pneumonia. Right lower lobe pneumonia Chest x-ray on 12/02 showed ossification of the right lung base. Placed on respiratory [place] quinolone by pulmonology. Radiologists currently recommending bronchoscopy -Recommend serial CT chest exam secondary to patient's history of tobacco use Anemia Continue to monitor H&H. Leukocytosis Continue to trend. Likely secondary to bacteremia/PNA. -Procalcitonin 0.69, repeat ordered. Medical management per primary team Plan of care discussed with Dr. Medina Thank you for consultation
[2021-12-07] MEDS: HYDROCODONE/APAP 7.5/325 MG TAB PO PRN ×2 (06:17→20:55)
[2021-12-07] MEDS: VANCOMYCIN 1.25 GM in NA CHLORIDE 0.9% 250 ML IV SCH ×2 (08:42→20:55)
[2021-12-07] MEDS: PREGABALIN 50 MG CAP PO SCH ×3 (08:42→20:55)
[2021-12-07] MEDS: levoFLOXacin 750 MG TAB PO SCH (08:42)
[2021-12-07] MEDS: ENOXAPARIN 40 MG/0.4 ML SQ SCH (08:42)
[2021-12-07] MEDS: ASPIRIN EC 81 MG TAB PO SCH (08:42)
[2021-12-07] MEDS: CLOPIDOGREL 75 MG TABLET PO SCH (08:42)
[2021-12-07] MEDS: POTASSIUM 25 MEQ EFFERV TAB PO SCH ×2 (08:42→20:55)
[2021-12-07] MEDS: DULERA 200/5 (MOMETASONE/FORMOTEROL) INHALER IH SCH ×2 (08:43→20:54)
--- NOTE | 2021-12-07 12:02 | P.PN ---
Subjective Date of Service: 12/07/21 Chief Complaint: pneumonia, atelectasis, MRSA bacteremia Patient seen and examined at bedside, doing well with no complaints. States cough is improving however still present. However patient does have a baseline of a cough. Aerating well on room air. PICC line pending. Patient plans to come to our facility daily to receive IV antibiotics. IV antibiotic completion date of 12/18. Review of Systems 10-point ROS is otherwise unremarkable Physical Examination - Vital Signs Temperature: 98.3 F Blood Pressure: 133/71 Pulse: 65 Respirations: 16 Pulse Ox (%): 93 - Studies Laboratory Last Values WBC 37.8 K/uL (4.3-10.9) H* 12/02/21 12:00 RBC 3.74 M/uL (4.33-5.43) L 12/02/21 12:00 Hgb 11.0 g/dL (13.6-17.9) L 12/02/21 12:00 Hct 33.8 % (39.6-49.0) L 12/02/21 12:00 MCV 90.4 fL (80-100) D 12/02/21 12:00 MCH 29.3 pg (27.0-35.0) 12/02/21 12:00 MCHC 32.4 g/dL (32.0-36.0) 12/02/21 12:00 RDW 18.9 % (12.1-15.2) H 12/02/21 12:00 Plt Count 587 K/uL (152-406) H 12/02/21 12:00 MPV 7.9 fL (7.6-11.3) 12/02/21 12:00 Neutrophils % 93.0 % (41.7-73.7) H 12/02/21 12:00 Lymphocytes % 1.4 % (15.3-44.8) L 12/02/21 12:00 Monocytes % 4.8 % (3.3-12.3) 12/02/21 12:00 Eosinophils % 0.1 % (0-4.4) 12/02/21 12:00 Basophils % 0.7 % (0-1.3) 12/02/21 12:00 Absolute Neutrophils 35.2 K/uL (1.8-8.0) H 12/02/21 12:00 Segmented Neutrophils 96 % (40-80) H 12/02/21 12:00 Absolute Lymphocytes 0.5 K/uL (0.7-4.9) L 12/02/21 12:00 Lymphocytes 2 % (15-42) L 12/02/21 12:00 Monocytes 2 % (0-10) 12/02/21 12:00 Absolute Monocytes 1.8 K/uL (0.1-1.3) H 12/02/21 12:00 Absolute Eosinophils 0.0 K/uL (0-0.5) 12/02/21 12:00 Absolute Basophils 0.3 K/uL (0-0.5) 12/02/21 12:00 Platelet Estimate Adeq 12/02/21 12:00 Morphology Comment Not seen (NOT SEEN) 12/02/21 12:00 Sodium 135 mmol/L (136-145) L 12/02/21 12:00 Potassium 3.1 mmol/L (3.5-5.1) L 12/02/21 12:00 Chloride 96 mmol/L (98-107) L 12/02/21 12:00 Carbon Dioxide 27 mmol/L (21-32) 12/02/21 12:00 Anion Gap 15.1 mEq/L (5.0-15.0) H 12/02/21 12:00 BUN 22 mg/dL (7-18) H 12/02/21 12:00 Creatinine 0.79 mg/dL (0.55-1.3) 12/02/21 12:00 Est GFR (CKD-EPI) 99 ml/min (=/>90) 12/02/21 12:00 Glucose 97 mg/dL (74-106) 12/02/21 12:00 Calcium 8.7 mg/dL (8.5-10.1) 12/02/21 12:00 Magnesium 2.1 mg/dL (1.8-2.4) 12/02/21 12:00 Total Bilirubin 0.5 mg/dL (0.2-1.0) 12/02/21 12:00 Direct Bilirubin 0.3 mg/dL (0-0.2) H 12/02/21 12:00 AST 12 U/L (15-37) L 12/02/21 12:00 ALT < 10 U/L (12-78) L 12/02/21 12:00 Alkaline Phosphatase 112 U/L (45-117) 12/02/21 12:00 Troponin I High Sens 13.8 pg/mL (<58.9) 12/02/21 12:00 NT-Pro-B Natriuret Pep 1742 pg/mL (<125) H 12/02/21 12:00 Serum Total Protein 7.1 g/dL (6.4-8.2) 12/02/21 12:00 Albumin 1.9 g/dL (3.4-5.0) L 12/02/21 12:00 Globulin 5.2 g/dL (2.3-3.5) H 12/02/21 12:00 Albumin/Globulin Ratio 0.4 (1.1-1.8) L 12/02/21 12:00 SARS-CoV-2 Rap RNA(RT-PCR) Negative (NEGATIVE) 12/02/21 15:28 Assessment And Plan - Plan Physical exam: General: Alert, In no apparent distress, Cachectic HEENT: Atraumatic Neck: 2+ carotid pulse no bruit Respiratory: Other (Diminished lung sounds bilaterally) Cardiovascular: Regular rate/rhythm Gastrointestinal: Normal bowel sounds, Soft and benign Musculoskeletal: No clubbing, No swelling, No contractures Integumentary: No rashes, No breakdown, No significant lesion Conclusions/Impression: Antibiotics: Levaquin: 12/05current Vancomycin: 12/05current Assessment/plan Gram-positive bacteremia Blood cultures obtained on 12/02 grew MRSA in 1 out of 4 bottles. Repeat cultures show no growth. TTE is pending. Low predictive value for endocarditis. Patient denies history of IV drug abuse, valvular abnormality, permanent cardiac device/prosthetic material. In addition, blood cultures cleared after 48 hours. Recommend continuing IV vancomycin for 2 weeks from 12/05. Source of infection is unclear, patient denies any open skin wounds. Could be secondary to pneumonia. Right lower lobe pneumonia Chest x-ray on 12/02 showed ossification of the right lung base. Placed on respiratory floraquinolone by pulmonology. Radiologists currently recommending bronchoscopy -Recommend serial CT chest exam secondary to patient's history of tobacco use -Recommend patient be sent home on oral Augmentin to complete a total antibiotic duration of 7 days. Anemia Continue to monitor H&H. Leukocytosis Continue to trend. Likely secondary to bacteremia/PNA. Medical management per primary team Plan of care discussed with Dr. Medina Thank you for consultation
[2021-12-07] MEDS: LACTOBACILLUS/ACIDOPHILUS TAB PO SCH ×2 (14:27→20:55)
--- NOTE | 2021-12-07 16:25 | P.PN ---
Subjective Date of Service: 12/07/21 Chief Complaint: pneumonia, atelectasis, MRSA bacteremia Patient has no new complaint. He is tolerating room air. He denies any chest pain. Physical Examination - Vital Signs Temperature: 98.1 F Blood Pressure: 124/64 Pulse: 73 Respirations: 18 Pulse Ox (%): 99 - Studies Microbiology Data (last 24 hrs): 12/02/21 15:30 Blood - Blood Aerobic Blood Culture - Final No growth in 5 days. 12/02/21 15:30 Blood - Blood Anaerobic Blood Culture - Final Assessment And Plan - Plan Physical exam GEN: Alert, oriented, NAD HEENT: Normal conjunctiva, sclera anicteric CV: Regular rate and rhythm, no edema Pulm: Bilateral crackles, worse on the right base. ABD: Soft, nontender, nondistended Neuro: Normal speech, normal affect Problem List sepsis secondary to Pneumonia, community acquired; with bacteremia (MRSA) R lung atelectasis h/o R lung cancer s/p lobectomy / chemo Chronic COPD, severe HTN HLD CAD s/p stents x4 Plan: Status post lobectomy last year, last chemo was in september 2021; valves placed in R lung ~6 months ago PET scan done ~5-6 weeks ago with no significant mass/lesion pulm consulted - no indication / plan for bronchoscopy at this time coronary stents reportedly done in [place] 06/2021 according to patient, continue aspirin/plavix He iss currently tolerating room air. Blood culture grew MRSA 1/4 Continue vancomycin, PICC line ordered for outpatient antibiotics. ID seen the patient and following. Repeat blood culture shows no growth. Monitor CBC to follow leukocytosis. Patient would like to receive his antibiotics daily in the hospital rather than home health or long term placement. social director is assisting with arrangement for outpatient IV antibiotics.
[2021-12-08 04:27] LABS: Absolute Lymphocytes (CBC) 0.6 K/uL (0.7-4.9); Hematocrit 25.5 % (39.6-49.0); Lymphocytes % 4.4 % (15.3-44.8); MPV 7.1 fL (7.6-11.3); RBC Red Blood Cell Count 2.92 M/uL (4.33-5.43)
[2021-12-08 04:41] LABS: Potassium 4.3 mmol/L (3.5-5.1)
--- NOTE | 2021-12-08 07:47 | ECHO ---
HEIGHT: 6 ft 0 in WEIGHT: 142 lb 13.753 oz DATE OF STUDY: 12/07/[address]: Paula Canseco 2-DIMENSIONAL: YES M.MODE: YES DOPPLER: YES COLOR FLOW: YES TDS: PORTABLE: YES DEFINITY: BUBBLE STUDY: DIAGNOSIS: MRSA BACTERMIA CARDIAC HISTORY: CATHERIZATION: YES SURGERY: NO PROSTHETIC VALVE: NO PACEMAKER: NO MEASUREMENTS (cm) DIASTOLIC (NORMALS) SYSTOLIC (NORMALS) IVSd 1.1 (0.6-1.2) LA Diam 2.7 (1.9-4.0) LVEF 73% LVIDd 5.4 (3.5-5.7) LVIDs 3.1 (2.0-3.5) %FS 43% LVPWd 1.2 (0.6-1.2) Ao Diam 2.9 (2.0-3.7) 2 DIMENSIONAL ASSESSMENT: RIGHT ATRIUM: NORMAL LEFT ATRIUM: NORMAL RIGHT VENTRICLE: NORMAL LEFT VENTRICLE: NORMAL TRICUSPID VALVE: NORMAL MITRAL VALVE: NORMAL PULMONIC VALVE: NORMAL AORTIC VALVE: NORMAL PERICARDIAL EFFUSION: NONE AORTIC ROOT: NORMAL LEFT VENTRICULAR WALL MOTION: DOPPLER/COLOR FLOW: COMMENTS: NORMAL 2-DIMENSIONAL ECHOCARDIOGRAM WITH DOPPLER. NO VEGETATION. TECHNOLOGIST: ONDINA CUNHA
[2021-12-08 08:52] VITALS: BP 106/64; TEMP 98.6
[2021-12-08 08:55] VITALS: O2SAT 95
[2021-12-08] MEDS: VANCOMYCIN 1.25 GM in NA CHLORIDE 0.9% 250 ML IV SCH (09:08)
[2021-12-08] MEDS: ENOXAPARIN 40 MG/0.4 ML SQ SCH (09:08)
[2021-12-08] MEDS: DULERA 200/5 (MOMETASONE/FORMOTEROL) INHALER IH SCH (09:09)
[2021-12-08] MEDS: POTASSIUM 25 MEQ EFFERV TAB PO SCH (09:09)
[2021-12-08] MEDS: PREGABALIN 50 MG CAP PO SCH ×2 (09:09→14:08)
[2021-12-08] MEDS: levoFLOXacin 750 MG TAB PO SCH (09:09)
[2021-12-08] MEDS: ASPIRIN EC 81 MG TAB PO SCH (09:09)
[2021-12-08] MEDS: LACTOBACILLUS/ACIDOPHILUS TAB PO SCH (09:09)
[2021-12-08] MEDS: CLOPIDOGREL 75 MG TABLET PO SCH (09:12)
--- NOTE | 2021-12-08 12:28 | P.PN ---
Subjective Date of Service: 12/08/21 Chief Complaint: pneumonia, atelectasis, MRSA bacteremia Patient seen and examined at bedside, PICC line placed to right arm. Review of Systems 10-point ROS is otherwise unremarkable Physical Examination - Vital Signs Temperature: 98.6 F Blood Pressure: 106/64 Pulse: 81 Respirations: 16 Pulse Ox (%): 98 - Studies Microbiology Data (last 24 hrs): 12/02/21 15:30 Blood - Blood Aerobic Blood Culture - Final No growth in 5 days. 12/02/21 15:30 Blood - Blood Anaerobic Blood Culture - Final Assessment And Plan - Plan Physical exam: General: Alert, In no apparent distress, Cachectic HEENT: Atraumatic Neck: 2+ carotid pulse no bruit Respiratory: Other (Diminished lung sounds bilaterally) Cardiovascular: Regular rate/rhythm Gastrointestinal: Normal bowel sounds, Soft and benign Musculoskeletal: No clubbing, No swelling, No contractures Integumentary: No rashes, No breakdown, No significant lesion Conclusions/Impression: Antibiotics: Levaquin: 12/05current Vancomycin: 12/05current Assessment/plan Gram-positive bacteremia Blood cultures obtained on 12/02 grew MRSA in 1 out of 4 bottles. Repeat cultures show no growth. TTE showed no signs of acute vegetation. Low predictive value for endocarditis. Patient denies history of IV drug abuse, valvular abnormality, permanent cardiac device/prosthetic material. In addition, blood cultures cleared after 48 hours. Patient currently on vancomycin. Unable to give outpatient as it has to be dosed every 12 hours secondary to patient's pharmacokinetics. Working with the psychotherapist social worker to set up for the patient to receive daptomycin 500 mg every 24 hours at this facility. Source of infection is unclear, patient denies any open skin wounds. Could be secondary to pneumonia. Right lower lobe pneumonia Chest x-ray on 12/02 showed ossification of the right lung base. Placed on respiratory floraquinolone by pulmonology. Radiologists currently recommending bronchoscopy -Recommend serial CT chest exam secondary to patient's history of tobacco use -Recommend patient be sent home on oral Augmentin to complete a total antibiotic duration of 7 days. -Procalcitonin downtrending, repeat ordered. Anemia Continue to monitor H&H. Leukocytosis Continue to trend. Likely secondary to bacteremia/PNA. Medical management per primary team Plan of care discussed with Dr. Mednia Thank you for consultation
--- NOTE | 2021-12-08 12:45 | RAD REPORT ---
EXAM DESCRIPTION: RAD - Chest Single View - 12/08/2021 1:57 am CLINICAL HISTORY: PICC placement COMPARISON: 12/05/2021 FINDINGS: Single frontal view of the chest. Tubes and lines: Right arm PICC with tip in the SVC. Leads overlie the chest. Dorsal generator leads. Cardiomediastinal silhouette: Stable Lungs: Right mid and lower lung opacity. Hyperinflation. No pneumothorax. Bones: Stable. Upper abdomen: Stable. IMPRESSION: 1. Right arm PICC with tip in the SVC. Otherwise stable appearance of the chest. Electronically signed by: Neo Ford 12/08/2021 2:22 AM CDT Due to temporary technical issues with the PACS/Fluency reporting system, reports are being signed by the in house radiologist without review as a courtesy to ensure prompt reporting. The interpreting r adiologist is fully responsible for the content of the report.
[2021-12-08] MEDS ORDERED: DAPTOmycin 500 MG in NA CHLORIDE 0.9% 100 ML IVPB SCH ×2 (14:00→15:00)
[2021-12-08] MEDS: HYDROCODONE/APAP 7.5/325 MG TAB PO PRN (14:07)
--- NOTE | 2021-12-08 16:33 | P.DS ---
Admission Date: 12/02/21 Discharge Date: 12/08/21 Disposition: ROUTINE DISCHARGE Discharge Condition: FAIR Reason for Admission: pneumonia, atelectasis, MRSA bacteremia Brief History of Present Illness: 66yo M, PMH: HTN, HLD, CAD s/p stentsx4 recently, lung cancer s/p lobectomy and chemo presented to ED due to progressively worsening shortness of breath / dyspnea on exertion, anorexia, and weight loss over the last 2-3 weeks. Associ ated with mild cough, no blood. Self-medicated with OTC cough medication. Per EMR, he apparently saw his PCP and found to have low BP : 80s/50s and was told to come to ED. In the ED, he was found to have significant leukocytosis, CT revealed large R lower lobe opacity consistent with atelectasis. Patient admitted for further management. Hospital Course: Diagnosis sepsis secondary to Pneumonia, community acquired; with bacteremia (MRSA) R lung atelectasis h/o R lung cancer s/p lobectomy / chemo Chronic COPD, severe HTN HLD CAD s/p stents x4 Acute respiratory failure with hypoxia Hospital course Status post lobectomy last year, last chemo was in september 2021; valves placed in R lung ~6 months ago PET scan done ~5-6 weeks ago with no significant mass/lesion. Patient admitted and started on aggressive antibiotics-IV cefepime and vancomycin pulm consulted - no indication / plan for bronchoscopy per Dr. Florentino Coronary stents reportedly done in [place] 06/2021 according to patient, continue aspirin/plavix He was initially requiring oxygen but was subsequently weaned to room air 1 blood culture bottle grew MRSA. Vancomycin added. Final antibiotic treatment was IV vancomycin and oral Levaquin. PICC line placed for outpatient antibiotics. Patient seen by ID who assisted with antibiotic treatment. Repeat blood culture shows no growth. Echocardiogram showed no vegetation. Patient has severe leukocytosis which trended down and almost resolved. Patient clinically improved with treatment. He declined placement in SNF to continue IV antibiotic treatment for MRSA and opted for outpatient antibiotic treatment in the hospital. Vancomycin changed to daptomycin. CK level within normal limit. Patient to c omplete 10 more days of treatment. Also prescribed oral Levaquin to continue treatment for the pneumonia. He will need CPK level checked at least weekly. Vital Signs/Physical Exam: Temp Pulse Resp BP Pulse Ox 98.6 F 81 16 106/64 98 12/08/21 12:28 12/08/21 12:28 12/08/21 14:07 12/08/21 12:28 12/08/21 14:07 General: Alert, In no apparent distress, Oriented x3 HEENT: Mucous membr. moist/pink Neck: Supple, JVD not distended Respiratory: Clear to auscultation bilaterally, Normal air movement Cardiovascular: No edema, Regular rate/rhythm, Normal S1 S2 Gastrointestinal: Normal bowel sounds, Soft and benign, Non-distended, No tenderness Musculoskeletal: No swelling Integumentary: No rashes, No cyanosis Neurological: Normal strength at 5/5 x4 extr, Cranial nerves 3-12 intact Laboratory Data at Discharge: WBC 13.8 K/uL (4.3-10.9) H D 12/08/21 03:55 Hgb 8.4 g/dL (13.6-17.9) L 12/08/21 03:55 Hct 25.5 % (39.6-49.0) L 12/08/21 03:55 Plt Count 526 K/uL (152-406) H 12/08/21 03:55 Sodium 133 mmol/L (136-145) L 12/08/21 03:55 Potassium 4.3 mmol/L (3.5-5.1) 12/08/21 03:55 BUN 7 mg/dL (7-18) 12/08/21 03:55 Creatinine 0.56 mg/dL (0.55-1.3) 12/08/21 03:55 Glucose 93 mg/dL (74-106) 12/08/21 03:55 Magnesium 1.8 mg/dL (1.8-2.4) 12/06/21 05:37 Total Bilirubin 0.5 mg/dL (0.2-1.0) 12/03/21 05:27 AST 10 U/L (15-37) L 12/03/21 05:27 ALT < 10 U/L (12-78) L 12/03/21 05:27 Alkaline Phosphatase 90 U/L (45-117) 12/03/21 05:27 Home Medications: Amiodarone HCl 200 mg PO DAILY 12/03/21 Aspirin 1 tab PO DAILY 12/03/21 Atorvastatin Calcium 1 tab PO BEDTIME 12/03/21 Clopidogrel Bisulfate [Plavix*] 75 mg PO DAILY 12/03/21 Etodolac 1 tab PO BID 12/03/21 Hydrocodone 7.5/APAP 325 [[place] 7.5/325 mg*] 1 tab PO TID 12/03/21 Mecobalamin [B12 Active] 1 tab PO DAILY 12/03/21 Pregabalin [Lyrica] 200 mg PO TID 12/03/21 Tizanidine HCl 1 tab PO DAILY 12/03/21 Trazodone HCl 100 mg PO BEDTIME 12/03/21 Benzonatate [Tessalon Perle*] 100 mg PO TID PRN #30 cap 12/08/21 DAPTOmycin [Daptomycin] 500 mg IV DAILY #10 vial 12/08/21 Docusate [Colace Cap*] 100 mg PO DAILY PRN #30 cap 12/08/21 Fluticasone/Salmeterol [Advair 250-50 Diskus] 1 each IH BID #60 disk.w.dev 12/08/21 L. Acidophilus/Bifid. Animalis [Dialyvite Chewable Probiotic] 1 each PO BID #60 tab.chew 12/08/21 levoFLOXacin [Levaquin*] 750 mg PO DAILY #5 tab 12/08/21 New Medications: Fluticasone/Salmeterol [Advair 250-50 Diskus] 1 each IH BID #60 disk.w.dev Docusate [Colace Cap*] 100 mg PO DAILY PRN #30 cap PRN Reason: Constipation DAPTOmycin [Daptomycin] 500 mg IV DAILY #10 vial L. Acidophilus/Bifid. Animalis [Dialyvite Chewable Probiotic] 1 each PO BID #60 tab.chew levoFLOXacin [Levaquin*] 750 mg PO DAILY #5 tab Benzonatate [Tessalon Perle*] 100 mg PO TID PRN #30 cap PRN Reason: Cough Diet: AHA Activity: Ad loly Followup: Piedad Hamm MD [Primary Care Provider] - Time spent managing pt's care (in minutes): 40
[2021-12-08] MEDS ORDERED: VANCOMYCIN 1.5 GM in NA CHLORIDE 0.9% 500 ML IV SCH (21:00)
== END 2021-12-08 17:21 | disposition home or self-care (01) | DRG 871 ==
LOC: ER 10:18 → ERHOLD 16:23 → 2ND 20:37
PROVIDERS: ADMIT Hospitalist; ATTEND Hospitalist
PROC: 02HV33Z Insertion of Infusion Device into Superior Vena Cava, Percutaneous Approach (ICD-10-PCS; principal; 2021-12-08)
PROC: 3E04329 Introduction of Other Anti-infective into Central Vein, Percutaneous Approach (ICD-10-PCS; 2021-12-08)
DX: A41.02 Sepsis due to Methicillin resistant Staphylococcus aureus (principal); J18.9 Pneumonia, unspecified organism; J96.01 Acute respiratory failure with hypoxia; J44.0 Chronic obstructive pulmonary disease with (acute) lower respiratory infection; J98.11 Atelectasis; R64 Cachexia; Z68.1 Body mass index [BMI] 19.9 or less, adult; I10 Essential (primary) hypertension; E78.5 Hyperlipidemia, unspecified; I25.10 Atherosclerotic heart disease of native coronary artery without angina pectoris; D64.9 Anemia, unspecified; Z95.5 Presence of coronary angioplasty implant and graft; Z85.118 Personal history of other malignant neoplasm of bronchus and lung; Z40.09 Encounter for prophylactic removal of other organ; Z20.822 Contact with and (suspected) exposure to COVID-19
CPT/HCPCS: 36415; 36569; 71045; 71046; 71275; 80048; 80053; 80076; 80202; 81003; 82550; 83735; 83880; 84145; 84484; 85025; 85027; 86140; 87040; 87077; 87186; 87205; 93005; 93306; 94760; 96365; 99285; J0692; J0878; J1650; J2543; J3370; J3475; J3480; J3535; J7030; J7040; J7050; Q9967; U0003

== ENCOUNTER 2021-12-16 06:56 | Inpatient (IN) | payer OTHER ==
--- OUTSIDE RECORDS SUMMARY | 2021-12-16 07:00 | XMS REPORT | Continuity of Care Document ---
:1955 Author Organization [facility] t Address [address] [place] [address] Care Team Providers Name Role Phone HANSEL, Ju Primary Care Physician Unavailable HANSEL, A Attending Clinician Unavailable Doctor Unassigned, Name Attending Clinician Unavailable Hansel WINSLOW, A Attending Clinician Jimmy Attending Clinician Unavailable DEBORAH Attending Clinician Unavailable MD DEBORAH Y.H. Attending Clinician Unavailable Jimmy Admitting Clinician Unavailable DEBORAH Admitting Clinician Unavailable MD DEBORAH Y.H. 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 Univers Unspecifie Unspecifie 2-25 it y of d severe d severe 00:00: [place] protein-ca protein-ca 00 Me dical swetha posada Branch malnutriti malnutriti on on Chest pain Chest pain Disease Active 2020-07 U nivers 2-24 ity of 00:00: [place] [address] [place] [address] Branch 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 Formattin g of this note might be different from the original. Added automatic ally from request for surgery [id number] Hypertensi Hypertensi Disease Active U nivers on on ity of [facility] [place] Arthritis Arthritis Disease Active Uni vers ity of [facility] [place] Back pain Back pain Disease Active Overview: Univers Formattin ity of g of this [place] note Medical might be Branch different from the original. spinal cord stimulato r (not using now) and morphine pump Allergies, Adverse Reactions, Alerts Allergy Allergy Status Severity Reaction(s) Onset Inactive Treating Comm ents Source Name Type Date Date Clinician No Known DA Active U [facility] Allergie 1-14 [place] s 00:00: [address] No Known DA Active U 0 [facility] Other 2-08 [place] Allergie 00:00: [address] No Known DA Active U 0 [facility] Contrast 2-08 [place] Allergie 00:00: [address] No Known DA Active U 2005-0 [facility] Drug 2-08 [place] Allergie 00:00: [address] No Known DA Active U 2005-0 [facility] Food 2-08 [place] Allergie 00:00: [address] No Known DA Active U 2002-0 [facility] Drug 3-18 [place] Intolera 00:00: [address] NO KNOWN Drug Active Univers ALLERGIE Class ity of [facility] Social History Social Habit Start Date Stop Date Quantity Comments Source History of tobacco Cigarette Smoker University of use [facility] [place] History [facility] University o f Alcohol Frequency [facility] edical [place] History [facility] University o f Alcohol Std Drinks [facility] [place] History [facility] University o f Alcohol Binge [place] [facility] Alcohol intake 2021-12-02 2021-12-02 Current drinker Unive rsity of 00:00:00 00:00:00 of alcohol [facility] (finding) Branch Tobacco Comment 2021-07-16 2021-07-16 1 pack x 50 yrs Univ ersity of 00:00:00 00:00:00 [facility] [place] Alcohol Comment 2017-02-22 2017-02-22 occasional Universit y of 00:00:00 00:00:00 alcohol use [place] [facility] Cigarettes smoked 2015-01-05 2015-01-05 Univers ity of current (pack per 00:00:00 00:00:00 ) - Reported Branch Cigarette 2015-01-05 2015-01-05 University of pack-years 00:00:00 00:00:00 [facility] [place] Tobacco use and 2015-01-05 2015-01-05 Former user Universi ty of exposure 00:00:00 00:00:00 [facility] [place] Sex [birth year] At [birth year] Universit y of 00:00:00 00:00:00 [facility] [place] Smoking Status Start Date Stop Date Source Current every day smoker 2015-01-05 00:00:00 Uni versity of [facility] [place] Medications Ordered Filled Start Stop Current Ordering Indication Dosage Frequency Signature Comments Components Source Medication Medication Date Date Medication? Clinician (SIG) Name Name pregabalin 0 Yes 200mg Take 200 Un kamran (LYRICA) 75 5-12 mg by ity of mg capsule 08:58: mouth [address] [place] [address] (three) Medical times [place] daily. atorvastati 2021-0 Yes 40mg Take 40 mg Univers n 40 mg 5-12 by mouth ity of tablet 08:58: at [place] [address] bedtime. Medical Branch clopidogreL 2021-0 Yes 75mg Take 75 mg Univers 75 mg 5-12 by mouth ity of tablet 08:58: daily. [address] pregabalin 2021-0 Yes 200mg Take 200 Un kamran (LYRICA) 75 5-12 mg by ity of mg capsule 08:58: mouth [address] [place] [address] (three) Medical times [place] daily. atorvastati 2021-0 Yes 40mg Take 40 mg Univers n 40 mg 5-12 by mouth ity of tablet 08:58: at [place] [address] bedtime. Medical Branch clopidogreL 2021-0 Yes 75mg Take 75 mg Univers 75 mg 5-12 by mouth ity of tablet 08:58: daily. [address] pregabalin 2021-0 Yes 200mg Take 200 Un kamran (LYRICA) 75 5-12 mg by ity of mg capsule 08:58: [place] (three[place] Medical times [place] daily. atorvastati 2-0 Yes 40mg Take 40 mg Univers n 40 mg 5-12 by mouth ity of tablet 08:58: at [place] [address] bedtime. Medical Branch clopidogreL 0 Yes 75mg Take 75 mg Univers 75 mg 5-12 by mouth ity of tablet 08:58: daily. [place] [address] Medical Branch pregabalin 0 Yes 200mg Take 200 Un kamran (LYRICA) 75 5-12 mg by ity of mg capsule 08:58: [place] (three) Medical times Branch daily. atorvastati 0 Yes 40mg Take 40 mg Univers n 40 mg 5-12 by mouth ity of tablet 08:58: at [place] [address] bedtime. Medical Branch clopidogreL 0 Yes 75mg Take 75 mg Univers 75 mg 5-12 by mouth ity of tablet 08:58: daily. [place] [address] Medical Branch pregabalin 0 Yes 200mg Take 200 Un kamran (LYRICA) 75 5-12 mg by ity of mg capsule 08:58: [place] 3 [place] (three) Medical times Branch daily. atorvastati 0 Yes 40mg Take 40 mg Univers n 40 mg 5-12 by mouth ity of tablet 08:58: at [place] [address] bedtime. Medical Branch clopidogreL Yes 75mg Take 75 mg Univers 75 mg 5-12 by mouth ity of tablet 08:58: daily. [place] [address] Medical Branch etodolac 2020-07 Yes 400mg Take [...] [place] INJECTION[place] 20 pump Medical Branch amiodarone 2020-07 Yes 200mg Take [...] 00 daily. Medical Branch levoFLOXaci 2020-07 Yes [id number] 500mg Take 1 Univers n 500 mg 1-16 tablet by ity of tablet 00:00: mouth [place] 00 every 24 Medical (twenty-fo Branch ur) hours. levoFLOXaci 2020-07 Yes [id number] 500mg Take 1 Univers n 500 mg 1-16 tablet by ity of tablet 00:00: mouth [place] 00 every 24 Medical (twenty-fo Branch ur) hours. levoFLOXaci 2020-07 Yes [id number] 500mg Take 1 Univers n 500 mg 1-16 tablet by ity of tablet 00:00: mouth [place] 00 every 24 Medical ([facility]) hours. levoFLOXaci 2020-07 Yes [id number] 500mg Take 1 Univers n 500 mg 1-16 tablet by ity of tablet 00:00: mouth [place] 00 every 24 Medical ([facility] ur) hours. levoFLOXaci 2020-07 Yes [id number] 500mg Take 1 Univers n 500 mg 1-16 tablet by ity of tablet 00:00: mouth [place] 00 every 24 Medical ([facility] ur) hours. metoprolol 2020-07 Yes [id number] 100mg Take 1 Univers succinate 1-08 tablet by ity o f XL 100 mg 00:00: mouth [place] 24 hr 00 every Medical tablet morning. Branch Call clinic for appointmen t. Needs appt for further refills. metoprolol 2020-07 Yes [id number] 100mg Take 1 Univers succinate 1-08 tablet by ity o f XL 100 mg 00:00: mouth [place] 24 hr 00 every Medical tablet morning. Branch Call clinic for appointmen t. Needs appt for further refills. metoprolol 2020-07 Yes [id number] 100mg Take 1 Univers succinate 1-08 tablet by ity o f XL 100 mg 00:00: mouth [place] 24 hr 00 every Medical tablet morning. Branch Call clinic for appointmen t. Needs appt for further refills. metoprolol 2020-07 Yes [id number] 100mg Take 1 Univers succinate 1-08 tablet by ity o f XL 100 mg 00:00: mouth [place] 24 hr 00 every Medical tablet morning. Branch Call clinic for appointmen t. Needs appt for further refills. metoprolol 2020-07 Yes [id number] 100mg Take 1 Univers succinate 1-08 tablet by ity o f XL 100 mg 00:00: mouth [place] 24 hr 00 every Medical tablet morning. Branch Call clinic for appointmen t. Needs appt for further refills. HYDROCHLORO 2020-07 Yes [id number] TAKE 1 Univers THIAZIDE 25 0-20 TABLET BY ity of mg tablet 00:00: MOUTH [place] 00 EVERY DAY Medical Branch TRAZODONE 2020-07 Yes [id number] TAKE 1 U nivers 100 mg 0-20 TABLET BY ity of tablet 00:00: MOUTH AT [place] [address] BEDTIME. Medical Branch HYDROCHLORO 2020-07 Yes [id number] TAKE 1 Univers THIAZIDE 25 0-20 TABLET BY ity of mg tablet 00:00: MOUTH [place] 00 EVERY DAY Medical Branch TRAZODONE 2020- Yes [id number] TAKE 1 U nivers 100 mg 0-20 TABLET BY ity of tablet 00:00: MOUTH AT [place] [address] BEDTIME. Medical Branch HYDROCHLORO 2020-07 Yes [id number] TAKE 1 Univers THIAZIDE 25 0-20 TABLET BY ity of mg tablet 00:00: MOUTH [place] 00 EVERY DAY Medical Branch TRAZODONE 2020-07 Yes [id number] TAKE 1 U nivers 100 mg 0-20 TABLET BY ity of tablet 00:00: MOUTH AT [place] [address] BEDTIME. Medical Branch HYDROCHLORO 2020-07 Yes [id number] TAKE 1 Univers THIAZIDE 25 0-20 TABLET BY ity of mg tablet 00:00: MOUTH [place] 00 EVERY DAY Medical Branch TRAZODONE 2020-07 Yes [id number] TAKE 1 U nivers 100 mg 0-20 TABLET BY ity of tablet 00:00: MOUTH AT [place] [address] BEDTIME. Medical Branch HYDROCHLORO 2020-07 Yes [id number] TAKE 1 Univers THIAZIDE 25 0-20 TABLET BY ity of mg tablet 00:00: MOUTH [place] 00 EVERY DAY Medical Branch TRAZODONE 2020-07 Yes [id number] TAKE 1 U nivers 100 mg 0-20 TABLET BY ity of tablet 00:00: MOUTH AT [place] [address] BEDTIME. Medical Branch Immunizations Ordered Filled Immunization Date Status Comments [facility] e Immunization Name Name SARS-COV-2 COVID-19 2020-10-27 Completed Unive rsity of MODERNA VACCINE 00:00:00 [facility] SARS-COV-2 COVID-19 2020-10-27 Completed Unive rsity of MODERNA VACCINE 00:00:00 [facility] SARS-COV-2 COVID-19 2020-10-27 Completed Unive rsity of MODERNA VACCINE 00:00:00 [facility] SARS-COV-2 COVID-19 2020-10-27 Completed Unive rsity of MODERNA VACCINE 00:00:00 [facility] SARS-COV-2 COVID-19 2020-10-27 Completed Unive rsity of MODERNA VACCINE 00:00:00 [facility] SARS-COV-2 COVID-19 2020-10-02 Completed Unive rsity of MODERNA VACCINE 00:00:00 [facility] SARS-COV-2 COVID-19 2020-10-02 Completed Unive rsity of MODERNA VACCINE 00:00:00 [facility] SARS-COV-2 COVID-19 2020-10-02 Completed Unive rsity of MODERNA VACCINE 00:00:00 [facility] SARS-COV-2 COVID-19 2020-10-02 Completed Unive rsity of MODERNA VACCINE 00:00:00 [facility] SARS-COV-2 COVID-19 2020-10-02 Completed Unive rsity of MODERNA VACCINE 00:00:00 [facility] Influenza Virus 2020-05-08 Completed Universit y of Vaccine [place] .5 mL 00:00:00 [facility] 6+ MO Branch Influenza Virus 2020-05-08 Completed Universit y of Vaccine [place] .5 mL 00:00:00 [facility] 6+ MO Branch Influenza Virus 2020-05-08 Completed Universit y of Vaccine [place] .5 mL 00:00:00 [facility] 6+ MO Branch Influenza Virus 2020-05-08 Completed Universit y of Vaccine [place] .5 mL 00:00:00 [facility] 6+ MO Branch Influenza Virus 2020-05-08 Completed Universit y of Vaccine [place] .5 mL 00:00:00 [facility] 6+ MO Branch TDAP 2015-12-24 Completed University of 00:00:00 [facility] [place] TDAP 2015-12-24 Completed University of 00:00:00 [facility] [place] TDAP 2015-12-24 Completed University of 00:00:00 [facility] [place] TDAP 2015-12-24 Completed University of 00:00:00 [facility] [place] TDAP 2015-12-24 Completed University of 00:00:00 [facility] [place] Vital Signs Vital Name Observation Time Observation Value Comments Source Systolic blood 2021-12-02 13:54:00 94 mm[Hg] Univer sity of pressure [facility] [place] Diastolic blood 2021-12-02 13:54:00 55 mm[Hg] Unive rsity of pressure [facility] [place] Heart rate 2021-12-02 13:54:00 75 /min [facility] Body temperature 2021-12-02 13:54:[address] [facility] Respiratory rate 2021-12-02 13:54:00 18 /min [facility] Body weight 2021-12-02 13:54:00 65.227 kg [facility] BMI 2021-12-02 13:54:00 19.50 kg/m2 [facility] Oxygen saturation in 2021-12-02 13:54:00 94 /min [facility] Arterial blood by [facility] [place] [facility] Pulse oximetry [place] Procedures Procedure Date / Time Performed Performing Clinician Sourc e EXTERNAL PROVIDER 2021-12-08 05:01:00 Doctor Unassvladimir, No [facility] RECORDS Name [facility] Encounters Start End Encounter Admission Attending Care Care Encounter Source Date/Time Date/Time Type Type Clinicians Facility Department ID 2021-12-27 2021-12-27 [id number] Univers 10:40:00 10:40:00 PIEDAD [id number] [facility] 2021-12-27 2021-12-27 [facility] [id number] Univers 10:40:00 10:40:00 PIEDAD [facility] 2021-12-09 2021-12-09 [facility] [id number] Univers 16:40:00 16:40:00 [facility] 2021-12-08 Orders Doctor MICHELLE [id number] Univers 00:00:00 00:00:00 Only Unassigned, JUS 350.1.13.10 ity of [place] [facility] 4.2.7.2.686 [place] as [id number] [address] 2021-12-08 2021-12-08 [facility] [id number] Univers 00:00:00 00:00:00 Piedad BRIDGES [id number] ity [place] [id number] Ut dical NAL [address] [facility] 2021-12-03 2021-12-03 [facility] [id number] [facility] [place] [facility] 00:00:00 00:00:00 Piedad BRIDGES [id number] ity of [facility] 4.2.[place].2.[place] [id number] Ut dical NAL 231 [facility] 2021-12-03 2021-12-03 [facility] [id number] [facility] [place] [facility] 00:00:00 00:00:00 Piedad BRIDGES [id number] ity of [facility] 4.2.7.2.[place] [id number] Ut dical NAL 044 [facility] 2021-12-02 2021-12-02 [facility] [id number] [facility] [place] [facility] 08:40:00 09:48:18 Visit Piedad BRIDGES [id number] ity of [facility] 4.2.7.2.686 [place] [id number] Ut dicmichael GARCIA 231 [facility] 2021-12-02 2021-12-[id number] [facility] [place] [facility] 08:40:00 09:48:18 PIEDAD itdomingo of [facility] [place] 2021-08-07 2021-08-08 Inpatient FABIOLA BrushOmar TELE [id number] [facility] 04:50:00 12:40:00 Chitra [id number] [facility] 2021-08-07 2021-08-08 Inpatient KHUSHBU BrushWU TELE [id number] [facility] 04:50:00 12:40:00 Chitra 33 [facility] 2021-06-25 2021-06-25 Outpatient [facility] [id number] [place] 00:00:00 00:00:[address] 2021-05-17 2021-06-01 Inpatient [facility] [id number] [place] 00:00:00 00:00:00 DANILO [address] 2021-05-27 2021-05-27 Outpatient CABRERA, [facility] [id number] [place] 00:00:00 00:00:00 EDWARD 7[address] [facility] 2021-05-13 2021-05-13 Outpatient CABRERA, [facility] [id number] [place] 00:00:00 00:00:00 EDWARD 711 [facility] 2021-05-06 2021-05-06 Outpatient CABRERA, [facility] [id number] [place] 00:00:00 00:00:00 EDWARD 199 [facility] 2021-04-12 2021-04-12 Outpatient CABRERA, [facility] [id number] [place] 00:00:00 00:00:00 EDWARD 190 [facility] 2021-04-08 2021-04-08 Outpatient CABRERA, [facility] [id number] [place] 00:00:00 00:00:00 EDWARD 952 [facility] 2021-04-08 2021-04-08 Outpatient CABRERA, [facility] [id number] [place] 00:00:00 00:00:00 EDWARD 669 [facility] 2021-04-08 2021-04-08 Outpatient CABRERA, [facility] [id number] [place] 00:00:00 00:00:00 EDWARD 650 [facility] 2021-04-08 2021-04-08 Outpatient CABRERA, [facility] [id number] [place] 00:00:00 00:00:00 EDWARD 019 Method i 2021-04-08 2021-04-08 Outpatient CABRERA, [facility] [id number] [place] 00:00:00 00:00:00 EDWARD [address] Results Test Description [...] CA) 9.1 MG/DL 8.4-10.2 N CBC W/AUTO [id number] 06:15:00 Test Item Value Reference Range Interpretation [...] code = 0.00 K/mm3 0.0-0.1 N NRBC#) [id number] 06:57:00 Test Item Value Reference Range Interpretation Comments ACT-ISTAT (test code = ACTI) 243 SEC 74-137 H BASIC METABOLIC [id number] 06:14:00 Test Item Value Reference Range Interpretation [...] 0-189 mg/dL VERY HIGH...... ...>/= 190 mg/dL [id number] 06:14:00 Test Item Value Reference Range Interpretation Comments MAGNESIUM (test code = MAG) 2.0 MG/DL 1.6-2.3 N PROTHROMBIN [id number] 06:03:00 Test Item Value Reference Range Interpretation [...] syste kris embolism. 3.0 - 4.5 PTT [id number] 06:03:00 Test Item Value Reference Range Interpretation Comments PTT ACTIVATED (test code = APTT) 37.5 SECONDS 25.1-36.5 H CBC W/AUTO [id number] 06:01:00 Test Item Value Reference Range Interpretation [...] 0.0-0.1 N NRBC#) COVID 19 Asymptomatic IH [id number] 05:04:00 Test Item Value Reference Range Interpretation [...] virus (antigen) in the sample." Spec Comments: PMR-AANOLL-TyY-2 (COVID-19) RNA [Presence] in Respiratory specimen by VIRGINIE with probe [id number] 00:29:52 Test Item Value Reference Range Interpretation Comments SARS-CoV-2 (COVID-19) RNA Not detected Not-Detected [Presence] in Respiratory specimen by VIR[place]IE with probe detection (test code = 03851-0) Whether patient is employed in a healthcare setting (test code = 00895-6) Whether the patient has symptoms related to condition of interest (test code = 64315-7) Patient was hospitalized because of this condition (test code = 46607-3) Whether the patient was admitted to intensive care unit (ICU) for condition of interest (test code = 18626-4) Whether patient resides in a congregate care setting (test code = 40555-2) SARS-CoV-2 (COVID-19) RNA [Presence] in Respiratory specimen by VIRGINIE with probe [id number] 15:40:55 Test Item Value Reference Range Interpretation Comments SARS-CoV-2 (COVID-19) RNA Not detected Not-Detected [Presence] in Respiratory specimen by [place]IR[place]IE with probe detection (test code = 18188-8) Whether patient is employed in a healthcare setting (test code = 17607-1) Whether the patient has symptoms related to condition of interest (test code = 05052-6) Patient was hospitalized because of this condition (test code = 04462-9) Whether the patient was admitted to intensive care unit (ICU) for condition of interest (test code = 46690-7) Whether patient resides in a congregate care setting (test code = 42372-3) SARS-CoV-2 (COVID-19) RNA [Presence] in Respiratory specimen by VIRGINIE with probe [id number] 00:51:54 Test Item Value Reference Range Interpretation Comments SARS-CoV-2 (COVID-19) RNA Not detected Not-Detected [Presence] in Respiratory specimen by [place]IR[place]IE with probe detection (test code = 35522-7) Whether patient is employed in a healthcare setting (test code = 50781-7) Whether the patient has symptoms related to condition of interest (test code = 72249-6) Patient was hospitalized because of this condition (test code = 29186-2) Whether the patient was admitted to intensive care unit (ICU) for condition of interest (test code = 32332-7) Whether patient resides in a congregate care setting (test code = 22303-8)
[2021-12-16 07:50] LABS: Absolute Lymphocytes (CBC) 0.5 K/uL (0.7-4.9); Hematocrit 25.8 % (39.6-49.0); Lymphocytes % 3.9 % (15.3-44.8); MPV 6.7 fL (7.6-11.3); RBC Red Blood Cell Count 2.91 M/uL (4.33-5.43)
[2021-12-16 08:05] LABS: Potassium 4.1 mmol/L (3.5-5.1)
[2021-12-16 08:07] LABS: Protime INR 1.34
--- NOTE | 2021-12-16 08:18 | RAD REPORT ---
EXAM DESCRIPTION: CT - Ct Stroke Brain Wo Cont - 12/16/2021 7:22 am CLINICAL HISTORY: Neuro deficit, acute, stroke suspected Headache, drowsiness, CVA symptomology COMPARISON: Head Brain W/Wo Con dated 10/28/2021; Head Brain W/Wo Con dated 06/11/2021 TECHNIQUE: All CT scans are performed using dose optimization technique as appropriate and may inclu de automated exposure control or mA/KV adjustment according to patient size. 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 Left verte bral artery is heavily calcified. The paranasal sinuses and mastoids are clear. The calvarium is intact. IMPRESSION: No acute intracranial abnormality.
--- NOTE | 2021-12-16 08:48 | RAD REPORT ---
EXAM DESCRIPTION: RAD - Chest Single View - 12/16/2021 8:30 am CLINICAL HISTORY: weakness Chest pain. COMPARISON: Chest Single View dated 12/08/2021; Chest Pa And Lat (2 Views) dated 12/05/2021; Chest Sin gle View dated 12/03/2021; Chest Single View dated 12/02/2021 FINDINGS: Portable technique limits examination quality. Moderate airspace opacity in the right lower lobe with right pleural effusion is again noted. This ap pears essentially unchanged relative to comparative study. Left lung is grossly clear. The heart is n ormal in size. Right-sided PICC line has tip in the SVC. IMPRESSION: Stable appearance to right lower lobe opacification.
--- NOTE | 2021-12-16 08:48 | ER ---
Nurse's Notes [facility] Name: Pablito Palomo Age: 66 yrs Sex: Male : 1955 Arrival Date: 12/16/2021 Time: 06:58 Bed 6 Private MD: Diagnosis: Altered mental status, unspecified;Cerebral infarction, unspecified-right arm weakness, 6pm last night;COPD/ Chronic obstructive pulmonary disease with acute lower respiratory infection;Anemia, unspecified Presentation: 12/16 07:34 Chief complaint: Spouse and/or significant other states: pt spouse reports pt having turner alter mental status, weakness, recent dx of PNA and MRSA, on daily ABX. Coronavirus screen: Vaccine status: Patient reports receiving the 2nd dose of the covid vaccine. Ebola Screen: Patient denies travel to an Ebola-affected area in the 21 days before illness onset. 07:34 Method Of Arrival: Wheelchair turner 07:35 Initial Sepsis Screen: Does the patient meet any 2 criteria? Altered Mental Status. turner Does the patient have a suspected source of infection? No. Patient's initial sepsis screen is negative. Risk Assessment: Do you want to hurt yourself or someone else? Patient reports no desire to harm self or others. Onset of symptoms was December 14, 2021. 07:35 Acuity: SANJANA 3 turner Triage Assessment: 07:36 General: Appears in no apparent distress. Behavior is cooperative. Pain: Denies pain. turner Historical: - Home Meds: 07:36 amiodarone 200 mg Oral tab 1 tab once daily [Active]; amlodipine 10 mg tab 1 tab once turner daily [Active]; aspirin 81 mg Oral chew 1 tab once daily [Active]; atorvastatin 40 mg Oral tab 1 tab once daily [Active]; clopidogrel 75 mg Oral tab 1 tab once daily [Active]; etodolac 200 mg Oral cap 1 cap 2 times per day [Active]; hydrochlorothiazide 25 mg Oral tab 1 tab once daily [Active]; hydrocodone-acetaminophen 7.5-325 mg Oral tab three times a day [Active]; metoprolol tartrate 100 mg Oral tab 1 tab once daily [Active]; morphine pump [Active]; pregabalin 200 mg Oral cap 1 cap 3 times per day [Active]; tizanidine 4 mg Oral tab daily [Active]; trazodone 100 mg Oral tab 1 tab once daily [Active]; - PMHx: 07:40 Hypercholesterolemia; Hypertensive disorder; Lung Cancer; turner - PSHx: 07:40 cardiac stent X 4; Right upper lobectomy; turner - Immunization history:: Adult Immunizations up to date. - Social history:: Smoking status: Patient reports the use of cigarette tobacco products, smokes one-half pack cigarettes per day. Screenin:37 Abuse screen: Denies threats or abuse. Denies injuries from another. Nutritional turner screening: No deficits noted. Tuberculosis screening: No symptoms or risk factors identified. Fall Risk IV access (20 points). Mental Status- Overestimates/Forgets Limitations (15 pts.). Assessment: 07:37 General: Appears in no apparent distress. Behavior is cooperative. Pain: Denies pain. turner Neuro: Level of Consciousness is obeys commands, lethargic, Oriented to person. Respiratory: Breath sounds are diminished bilaterally. Musculoskeletal: Parent/caregiver report the patient having weakness in generalized. Vital Signs: 07:08 BP 131 / 59; Pulse 69; Resp 18; Temp 97.7; Pulse Ox 93% on R/A; oe 10:41 BP 116 / 90; Pulse 62; Resp 20; Pulse Ox 100% on 3 lpm NC; turner NIH Stroke Scale Scores: 08:32 NIHSS Score: 1 krystal ED Course: 06:58 Patient arrived in ED. kz 07:06 Henry Portillo MD is Attending Physician. kdr 07:23 CT Stroke Brain w/o Contrast In Process Unspecified. EDMS 07:27 Sandy Weber, RN is Primary Nurse. turner 07:35 Triage completed. turner 07:36 Arm band placed on. turner 07:37 Patient has correct armband on for positive identification. Bed in low position. turner 07:37 No provider procedures requiring assistance completed. Accessed PICC line. double lumen turner Good blood return. 07:43 Attending Physician role handed off by Henry Portillo MD krystal 07:43 David Garrido MD is Attending Physician. krystal 08:31 Stroke CXR 1 View In Process Unspecified. EDMS 08:46 Jammie Israel MD is Hospitalizing Provider. krystal 09:53 Inserted saline lock: 20 gauge in right antecubital area, using aseptic technique. turner 17:40 Patient admitted, IV remains in place. turner Administered Medications: 08:45 Drug: Aspirin 81 mg Route: PO; turner 10:40 Follow up: Response: No adverse reaction turner 08:45 Drug: Xopenex (levalbuterol) 2.5 mg Route: Inhalation; turner 08:45 Drug: AtroVENT (ipratropium) Aerosol 0.5 mg Route: Inhalation; turner 08:45 Drug: Pepcid (famotidine) 20 mg Route: IVP; Site: right antecubital; turner 10:41 Follow up: Response: No adverse reaction turner 12:22 Drug: DAPTOmycin 500 mg Route: IV; Rate: per protocol; Site: right antecubital; turner 13:41 Follow up: IV Status: Completed infusion turner 14:28 Drug: foLIC Acid 1 mg Route: IVPB; Site: right antecubital; turner 14:29 Follow up: IV Status: Completed infusion turner Medication: 07:37 VIS not applicable for this client. turner Outcome: 08:48 Decision to Hospitalize by Provider. krystal 17:40 Admitted to Tele accompanied by [facility], room 223. 17:40 Condition: stable 17:40 Instructed on the need for admit. 17:40 Patient left the ED. NIH Stroke Scale - NIH Stroke Score Date: 12/16/2021 Time: 08:32 Total Score = 1 1a. Level of Consciousness (LOC) - 0(Alert) 1b. Level of Consciousness (LOC) (Month \T\ Age) - 0(Both) 1c. LOC Commands (Open \T\ Closes Eyes/Ultrasound Spec) - 0(Both) 2. Best Gaze (Lateral Gaze Paresis) - 0(Normal) 3. Visual Field Loss - 0(No visual loss) 4. Facial Palsy - 0(Normal) 5a. Left Arm: Motor (10-second hold) - 0(No drift) 5b. Right Arm: Motor (10-second hold) - 1(Drift) 6a. Left Leg: Motor (5-second hold - always test supine) - 0(No drift) 6b. Right Leg: Motor (5-second hold - always test supine) - 0(No drift) 7. Limb Ataxia (finger/nose \T\ heel/palacios - test with eyes open) - 0(Absent) 8. Sensory Loss (pinprick arms/legs/face) - 0(Normal) 9. Best Language: Aphasia (description/naming/reading) - 0(No aphasia) 10. Dysarthria (speech clarity - read or repeat words) - 0(Normal) 11. Extinction and Inattention (visual/tactile/auditory/spatial/personal) - 0(No abnormality) Initials: krystal Signatures: Dispatcher [employer] EDDavid Abdalla MD MD cha Rittger, Kevin, MD MD kdr Espinosa, Orlando oe Au-Stager, Heather, RN RN Carito Ace Corrections: (The following items were deleted from the chart) 07:37 07:34 Chief complaint: Spouse and/or significant other states: pt spouse turner reports pt having alter mental status, weakness, recent dx of PNA, on daily ABX. turner
--- NOTE | 2021-12-16 08:48 | EDPHYS ---
Physician Documentation [facility] [place], [place] Name: Pablito Palomo Age: 66 yrs Sex: Male : 1955 Arrival Date: 12/16/2021 Time: 06:58 Bed 6 Private MD: ED Physician David Garrido HPI: 12/16 08:31 This 66 yrs old Male presents to ER via Wheelchair with complaints of S/S of krystal Possible Stroke. Historical: - Home Meds: 07:36 amiodarone 200 mg Oral tab 1 tab once daily [Active]; amlodipine 10 mg tab 1 tab once turner daily [Active]; aspirin 81 mg Oral chew 1 tab once daily [Active]; atorvastatin 40 mg Oral tab 1 tab once daily [Active]; clopidogrel 75 mg Oral tab 1 tab once daily [Active]; etodolac 200 mg Oral cap 1 cap 2 times per day [Active]; hydrochlorothiazide 25 mg Oral tab 1 tab once daily [Active]; hydrocodone-acetaminophen 7.5-325 mg Oral tab three times a day [Active]; metoprolol tartrate 100 mg Oral tab 1 tab once daily [Active]; morphine pump [Active]; pregabalin 200 mg Oral cap 1 cap 3 times per day [Active]; tizanidine 4 mg Oral tab daily [Active]; trazodone 100 mg Oral tab 1 tab once daily [Active]; - PMHx: 07:40 Hypercholesterolemia; Hypertensive disorder; Lung Cancer; turner - PSHx: 07:40 cardiac stent X 4; Right upper lobectomy; turner - Immunization history:: Adult Immunizations up to date. - Social history:: Smoking status: Patient reports the use of cigarette tobacco products, smokes one-half pack cigarettes per day. ROS: 08:32 Constitutional: Negative for fever, chills, and weight loss, Eyes: Negative for injury, krystal pain, redness, and discharge, ENT: Negative for injury, pain, and discharge, Neck: Negative for injury, pain, and swelling, Cardiovascular: Negative for chest pain, palpitations, and edema, Abdomen/GI: Negative for abdominal pain, nausea, vomiting, diarrhea, and constipation, Back: Negative for injury and pain, : Negative for injury, bleeding, discharge, and swelling, Skin: Negative for injury, rash, and discoloration, Psych: Negative for depression, anxiety, suicide ideation, homicidal ideation, and hallucinations, Allergy/Immunology: Negative for hives, rash, and allergies, Endocrine: Negative for neck swelling, polydipsia, polyuria, polyphagia, and marked weight changes, Hematologic/Lymphatic: Negative for swollen nodes, abnormal bleeding, and unusual bruising. 08:32 Respiratory: Positive for cough, shortness of breath, at rest. 08:32 Neuro: Positive for weakness, of the right arm, last night 6pm , right arm and hand weak. Exam: 08:32 Radiologist reports: negative krystal 08:32 Constitutional: This is a well developed, well nourished patient who is awake, alert, and in no acute distress. Head/Face: Normocephalic, atraumatic. Eyes: Pupils equal round and reactive to light, extra-ocular motions intact. Lids and lashes normal. Conjunctiva and sclera are non-icteric and not injected. Cornea within normal limits. Periorbital areas with no swelling, redness, or edema. ENT: Nares patent. No nasal discharge, no septal abnormalities noted. Tympanic membranes are normal and external auditory canals are clear. Oropharynx with no redness, swelling, or masses, exudates, or evidence of obstruction, uvula midline. Mucous membranes moist. Neck: Trachea midline, no thyromegaly or masses palpated, and no cervical lymphadenopathy. Supple, full range of motion without nuchal rigidity, or vertebral point tenderness. No Meningismus. Chest/axilla: Normal chest wall appearance and motion. Nontender with no deformity. No lesions are appreciated. Cardiovascular: Regular rate and rhythm with a normal S1 and S2. No gallops, murmurs, or rubs. Normal PMI, no JVD. No pulse deficits. Respiratory: Lungs have equal breath sounds bilaterally, clear to auscultation and percussion. No rales, rhonchi or wheezes noted. No increased work of breathing, no retractions or nasal flaring. Abdomen/GI: Soft, non-tender, with normal bowel sounds. No distension or tympany. No guarding or rebound. No evidence of tenderness throughout. Back: No spinal tenderness. No costovertebral tenderness. Full range of motion. Male : Normal genitalia with no discharge or lesions. Skin: Warm, dry with normal turgor. Normal color with no rashes, no lesions, and no evidence of cellulitis. MS/ Extremity: Pulses equal, no cyanosis. Neurovascular intact. Full, normal range of motion. Psych: Awake, alert, with orientation to person, place and time. Behavior, mood, and affect are within normal limits. 08:32 Neuro: Orientation: appropriate for stated age, Mentation: slow to respond, Memory: is normal, appropriate for stated age, no acute changes, Cranial nerves: grossly normal, is grossly normal based on the patient's age, no acute changes, Cerebellar function: is grossly normal, Motor: moves all fours, strength is 4/5 in the right arm, Sensation: is normal, no obvious gross deficits, appropriate no acute changes, Gait: not tested. seizure activity, is not displayed by the patient. 08:52 ECG was reviewed by the Attending Physician. [facility] Vital Signs: 07:08 BP 131 / 59; Pulse 69; Resp 18; Temp 97.7; Pulse Ox 93% on R/A; oe 10:41 BP 116 / 90; Pulse 62; Resp 20; Pulse Ox 100% on 3 lpm NC; turner NIH Stroke Scale Scores: 08:32 NIHSS Score: 1 krystal MDM: 07:43 Patient medically screened. krystal 08:39 Differential diagnosis: CVA, TIA, Dementia. Data reviewed: vital signs, nurses notes, [facility] lab test result(s), EKG, radiologic studies, CT scan, plain films. Data interpreted: school bus monitor: rate is 69 beats/min, rhythm is regular, Pulse oximetry: on room air is 93 %. Test interpretation: by ED physician or midlevel provider: ECG, plain radiologic studies. Counseling: I had a detailed discussion with the patient and/or guardian regarding: the historical points, exam findings, and any diagnostic results supporting the discharge/admit diagnosis, lab results, radiology results, the need for further work-up and treatment in the hospital. 12/16 07:07 Order name: Basic Metabolic Panel; Complete Time: [facility] 12/16 07:07 Order name: CBC with Diff; Complete Time: [facility] 12/16 07:07 Order name: Protime (+inr); Complete Time: [facility] 12/16 07:07 Order name: Ptt, Activated; Complete Time: [facility] 12/16 07:41 Order name: Glucose, Ancillary Testing; Complete Time: 08:31 [facility] 12/16 08:20 Order name: COVID-19 SARS RT PCR (Document "Date of Onset" if Symptomatic); Complete [facility] Time: 16:42 12/16 08:20 Order name: Flu; Complete Time: 16:42 [facility] 12/16 08:30 Order name: ABG; Complete Time: 16:42 [facility] 12/16 08:30 Order name: Lactate; Complete Time: 16:42 [facility] 12/16 08:30 Order name: Blood Culture Adult (2) [facility] 12/16 08:32 Order name: Type And Screen; Complete Time: 16:42 [facility] 12/16 09:15 Order name: Basic Metabolic Panel [facility] 12/16 09:15 Order name: CBC with Automated Diff [facility] 12/16 09:15 Order name: Protime (+INR) [facility] 12/16 07:07 Order name: CT Stroke Brain w/o Contrast; Complete Time: 08:31 [facility] 12/16 07:07 Order name: Stroke CXR 1 View; Complete Time: 08:52 [facility] 12/16 07:07 Order name: EKG; Complete Time: 07:08 [facility] 12/16 08:52 Order name: CT Head Angio [facility] 12/16 08:52 Order name: CT Neck Angio [facility] 12/16 09:15 Order name: CONS Physician Consult [facility] 12/16 09:15 Order name: PTT, Activated Partial Thromb [facility] 12/16 09:50 Order name: ABO/RH no charge; Complete Time: 16:42 [facility] 12/16 12:04 Order name: CT; Complete Time: 16:42 [facility] 12/16 12:07 Order name: CT; Complete Time: 16:42 [facility] 12/16 07:07 Order name: Accucheck; Complete Time: 07:40 [facility] 12/16 07:07 Order name: Cardiac monitoring; Complete Time: 07:27 [facility] 12/16 07:07 Order name: EKG - Nurse/Tech; Complete Time: 07:27 [facility] 12/16 07:07 Order name: IV Saline Lock; Complete Time: 07:27 [facility] 12/16 07:07 Order name: Labs collected and sent; Complete Time: 07:27 [facility] 12/16 07:07 Order name: NPO; Complete Time: 07:27 [facility] 12/16 07:07 Order name: O2 Per Protocol; Complete Time: 07:27 kdr 12/16 07:07 Order name: O2 Sat Monitoring; Complete Time: 07:27 kdr 12/16 07:07 Order name: Stroke Swallow Screen; Complete Time: 14:15 kdr 12/16 09:15 Order name: Heart Healthy EDMS 12/16 09:15 Order name: NPO; Complete Time: 10:41 EDMS 12/16 09:15 Order name: NPO; Complete Time: 10:41 EDMS 12/16 09:15 Order name: NPO; Complete Time: 10:41 EDMS EC:52 Rate is 59 beats/min. Rhythm is regular. QRS [place] is Normal. ME interval is normal. QRS krystal interval is normal. QT interval is normal. No Q waves. T waves are Normal. No ST changes noted. Clinical impression: Sinus bradycardia and No evidence of ischemia. Interpreted by me. Reviewed by me. Administered Medications: 08:45 Drug: Aspirin 81 mg Route: PO; turner 10:40 Follow up: Response: No adverse reaction turner 08:45 Drug: Xopenex (levalbuterol) 2.5 mg Route: Inhalation; turner 08:45 Drug: AtroVENT (ipratropium) Aerosol 0.5 mg Route: Inhalation; turner 08:45 Drug: Pepcid (famotidine) 20 mg Route: IVP; Site: right antecubital; turner 10:41 Follow up: Response: No adverse reaction turner 12:22 Drug: DAPTOmycin 500 mg Route: IV; Rate: per protocol; Site: right antecubital; turner 13:41 Follow up: IV Status: Completed infusion turner 14:28 Drug: foLIC Acid 1 mg Route: IVPB; Site: right antecubital; turner 14:29 Follow up: IV Status: Completed infusion turner Disposition Summary: 12/16/21 08:48 Hospitalization Ordered Hospitalization Status: Inpatient Admission krystal Provider: Jammie Israel cha Location: Telemetry/MedSurg (Inpatient) krystal Condition: Fair krystal Problem: new krystal Symptoms: have improved krystal Bed/Room Type: Standard krystal Room Assignment: 223(12/16/21 16:08) ja1 Diagnosis - Altered mental status, unspecified krystal - Cerebral infarction, unspecified - right arm weakness, 6pm last night krystal - COPD/ Chronic obstructive pulmonary disease with acute lower respiratory infection krystal - Anemia, unspecified krystal Forms: - Medication Reconciliation Form krystal - SBAR form krystal NIH Stroke Scale - NIH Stroke Score Date: 12/16/2021 Time: 08:32 Total Score = 1 1a. Level of Consciousness (LOC) - 0(Alert) 1b. Level of Consciousness (LOC) (Month \\T\\ Age) - 0(Both) 1c. LOC Commands (Open \\T\\ Closes Eyes/[employer]) - 0(Both) 2. Best Gaze (Lateral Gaze Paresis) - 0(Normal) 3. Visual Field Loss - 0(No visual loss) 4. Facial Palsy - 0(Normal) 5a. Left Arm: Motor (10-second hold) - 0(No drift) 5b. Right Arm: Motor (10-second hold) - 1(Drift) 6a. Left Leg: Motor (5-second hold - always test supine) - 0(No drift) 6b. Right Leg: Motor (5-second hold - always test supine) - 0(No drift) 7. Limb Ataxia (finger/nose \\T\\ heel/palacios - test with eyes open) - 0(Absent) 8. Sensory Loss (pinprick arms/legs/face) - 0(Normal) 9. Best Language: Aphasia (description/naming/reading) - 0(No aphasia) 10. Dysarthria (speech clarity - read or repeat words) - 0(Normal) 11. Extinction and Inattention (visual/tactile/auditory/spatial/personal) - 0(No abnormality) Initials: [facility] Signatures: Dispatcher [employer] David Whitley MD MD cha Rittger, Kevin, MD MD kdr Aguilar, Jose, RN RN ja1 Au-Stager, Heather, RN RN ha Corrections: (The following items were deleted from the chart) 16:08 08:48 krystal arellano
[2021-12-16] MEDS ORDERED: FAMOTIDINE 20 MG/2 ML VIAL IV ONE (08:51)
[2021-12-16] MEDS ORDERED: ASPIRIN 81 MG CHEWABLE TABLET ONE (08:51)
[2021-12-16] MEDS ORDERED: LEVALBUTEROL 1.25 MG/3 ML NEB ONE (08:51)
[2021-12-16] MEDS ORDERED: IPRATROPIUM BROM 0.5MG/2.5ML ONE (08:51)
[2021-12-16] MEDS ORDERED: ALBUTEROL 2.5 MG/3 ML NEB SOL NEB PRN (09:11)
[2021-12-16] MEDS ORDERED: MORPHINE 2 MG/ML SYR IV PRN (09:11)
[2021-12-16] MEDS ORDERED: ONDANSETRON 4 MG/2 ML VIAL IV PRN (09:11)
[2021-12-16 10:48] LABS: Arterial Blood Carboxyhemoglob 3.3 % (0-1.5); Blood Gas Oxyhemoglobin 90.3 % (94-97); Blood O2 Saturation 94.7 % (92-98.5)
[2021-12-16] MEDS ORDERED: DAPTOmycin 500 MG in NA CHLORIDE 0.9% 100 ML IVPB SCH (11:00)
--- NOTE | 2021-12-16 12:03 | RAD REPORT ---
EXAM DESCRIPTION: CT - Head angio - 12/16/2021 11:54 am CLINICAL HISTORY: Neuro deficit, acute, stroke suspected Headache, drowsiness, CVA symptomology COMPARISON: Ct Stroke Brain Wo Cont dated 12/16/2021; Head Brain W/Wo Con dated 10/28/2021 TECHNIQUE: CT angiography of the head was performed with MIPs. All CT scans are performed using dose optimization technique as appropriate and may include automated exposure control or mA/KV adjustment according to patient size. FINDINGS: No evidence of aneurysm is detected. No flow-limiting stenosis or vascular malformation id entified. No large vessel occlusion seen. The left vertebral artery is significantly dominant. The right vertebral artery is very diminutive. The visualized dural venous sinuses are patent. IMPRESSION: No significant flow abnormality is detected.
--- NOTE | 2021-12-16 12:07 | RAD REPORT ---
EXAM DESCRIPTION: CT - Neck Angio - 12/16/2021 11:54 am CLINICAL HISTORY: Neuro deficit, acute, stroke suspected Headache, drowsiness, CVA symptomology COMPARISON: No comparisons TECHNIQUE: CT angiography of the neck vessels was performed with MIPs. All CT scans are performed using dose optimization technique as appropriate and may include automated exposure control or mA/KV adjustment according to patient size. FINDINGS: A left aortic arch is identified with normal three vessel configuration of the great vesse ls. No significant flow abnormality is seen of the common carotid bilaterally. Moderate hard plaque is seen proximal left internal carotid artery estimating and stenosis estimated at 30% on the left. Moderate hard plaque right proximal internal carotid artery results in stenosis e stimated at 50-70%. Left vertebral artery is dominant. IMPRESSION: 50-70% stenosis proximal right internal carotid artery. 30% stenosis proximal left internal carotid artery.
[2021-12-16] MEDS ORDERED: FOLIC ACID 5 MG/ML VIAL ONE (14:29)
--- NOTE | 2021-12-16 16:33 | P.HP ---
Certification for Inpatient With expected LOS: >2 Midnights Patient will require the following post-hospital care: None Practitioner: I am a practitioner with admitting privileges, knowledge of patient current condition, hospital course, and medical plan of care. Services: Services provided to patient in accordance with Admission requirements found in Title 42 Section 412.3 of the Code of Federal Regulations Patient History Date of Service: 12/16/21 Reason for admission: Left hand weakness History of Present Illness: 66-year-old male with history of lung cancer status post lobectomy, CAD, chronic tobacco use, chronic pain syndrome with indwelling subcutaneous morphine pump, hypertension, recent right lower lobe pneumonia with pleural effusion on IV Dapto via PICC line since the last 7 days, developed right hand weakness with difficulty with cramps last p.m. while sitting in the room. Symptoms were noted by the spouse. Patient symptoms continue to persist overnight and he was brought to the emergency room this morning. Initial head CT shows no acute infarct. Handgrip noted to be markedly weak. Patient denies any headache dizziness: Loss of consciousness. He denies any chest pain or shortness of breath. He has been admitted for presumed left CVA. Head CTA shows no vertebral flow abnormality. CT of the neck shows Moderate hard plaque is seen proximal left internal carotid artery estimating and stenosis estimated at 30% on the left. Moderate hard plaque right proximal internal carotid artery results instenosis estimated at 50-70%. Allergies gabapentin Allergy (Mild, Verified 12/14/21 09:07) other Home Medications: Amiodarone HCl 200 mg PO DAILY 12/03/21 Aspirin 1 tab PO DAILY 12/03/21 Atorvastatin Calcium 1 tab PO BEDTIME 12/03/21 Clopidogrel Bisulfate [Plavix*] 75 mg PO DAILY 12/03/21 Etodolac 1 tab PO BID 12/03/21 Hydrocodone 7.5/APAP 325 [[place] 7.5/325 mg*] 1 tab PO TID 12/03/21 Mecobalamin [B12 Active] 1 tab PO DAILY 12/03/21 Pregabalin [Lyrica] 200 mg PO TID 12/03/21 Tizanidine HCl 1 tab PO DAILY 12/03/21 Trazodone HCl 100 mg PO BEDTIME 12/03/21 Benzonatate [Tessalon Perle*] 100 mg PO TID PRN #30 cap 12/08/21 DAPTOmycin [Daptomycin] 500 mg IV DAILY #10 vial 12/08/21 Docusate [Colace Cap*] 100 mg PO DAILY PRN #30 cap 12/08/21 Fluticasone/Salmeterol [Advair 250-50 Diskus] 1 each IH BID #60 disk.w.dev 12/08/21 L. Acidophilus/Bifid. Animalis [Dialyvite Chewable Probiotic] 1 each PO BID #60 tab.chew 12/08/21 levoFLOXacin [Levaquin*] 750 mg PO DAILY #5 tab 12/08/21 - Past Medical/Surgical History Diabetic: No -: HTN -: HLD -: h/o lung cancer s/p lobectomy/chemo -: r lobectomy -: coronary stent x4 (07/13) -: morphine pump RLQ - Social History Smoking Status: Heavy Tobacco smoker (>10 cigarettes/day) Counseled patient to stop smoking for: less than 10 minutes Smoking therapy provided: No Patient receptive to therapy: No Alcohol use: No CD- Drugs: No Caffeine use: Yes Place of Residence: Home Review of Systems 10-point ROS is otherwise unremarkable Physical Examination - Physical Exam General: Alert, In no apparent distress, Oriented x3 HEENT: Atraumatic, Normocephalic, PERRLA Neck: Supple, JVD not distended Respiratory: Clear to auscultation bilaterally, Normal air movement Cardiovascular: Normal pulses, Regular rate/rhythm, Normal S1 S2 Gastrointestinal: Normal bowel sounds, Soft and benign, Non-distended, No ascites Integumentary: No rashes, No breakdown Neurological: Normal speech, Normal tone, Sensation intact, Other (left hand rn transplant weakness with apraxia, others 4/5) - Studies Laboratory Data (last 24 hrs) 12/16/21 07:36: PT 14.8 H, INR 1.34, APTT 35.1 12/16/21 07:36: WBC 11.5 H D, Hgb 8.2 L, Hct 25.8 L, Plt Count 579 H 12/16/21 07:36: Sodium 135 L, Potassium 4.1, BUN 15, Creatinine 0.75, Glucose 105 Microbiology Data (last 24 hrs): 12/16/21 08:25 Nasopharnyx Influenza Type A Antigen Screen - Final 12/16/21 08:25 Nasopharnyx Influenza Type B Antigen Screen - Final Assessment and Plan - Advance Directives Does patient have a Living Will: No Does patient have a Durable POA for Healthcare: No - Code Status/Comfort Care Code Status: Full Code Physician Review: Patient Assessed, Agree with Above Assessment and Plan Physician Review Additional Text: Impression Presumed left CVA with right hand weakness Right base pneumonia with effusionon IV daptomycin Hypertension History of CADstable History of COPDstable History of lung cancer Chronic pain syndromeindwelling morphine pump Plan We will admit patient to neuro unit Place in telemetry Unable to do MRI brain, repeat CT 24 hours Moderate to severe stenosis of left ICA, may need vascular evaluation as out patient Neurology consult Obtain homocystine level/echocardiogram Continue aspirin and Plavix PT/OT eval Continue daptomycin until the next 3 days to finish course for right base pneumonia Nicotine patch for tobacco use Lovenox for DVT prophylaxis Time Spent Managing Pts Care (In Minutes): 65
[2021-12-16] MEDS ORDERED: HYDRALAZINE HCL 20 MG/ML VIAL IV PRN (16:39)
[2021-12-16] MEDS ORDERED: LORAZEPAM 0.5 MG TABLET PO PRN (16:39)
[2021-12-16] MEDS ORDERED: BENZONATATE 100 MG CAP PO PRN (16:40)
[2021-12-16] MEDS: levoFLOXacin 750 MG TAB PO SCH (17:43)
[2021-12-16] MEDS: ENOXAPARIN 40 MG/0.4 ML SQ SCH (17:43)
[2021-12-16 18:10] VITALS: BMI 19.5
[2021-12-16] MEDS: ATORVASTATIN 40 MG TAB PO SCH (20:43)
[2021-12-16] MEDS: PREGABALIN 150 MG CAP PO SCH (20:43)
[2021-12-16] MEDS: LACTOBACILLUS/ACIDOPHILUS TAB PO SCH (20:43)
[2021-12-16] MEDS: TRAZODONE 50 MG TABLET PO SCH (20:43)
[2021-12-16] MEDS: HYDROCODONE/APAP 7.5/325 MG TAB PO SCH (20:43)
[2021-12-16] MEDS: PREGABALIN 50 MG CAP PO SCH (20:43)
[2021-12-16] MEDS ORDERED: [UNRECOGNIZED DRUG - OTHER] PO SCH (21:00)
[2021-12-16] MEDS ORDERED: HOME MED 1 EA UNK (Trazodone Hcl [Trazodone Hcl] 100 MG Tablet) PO SCH (21:00)
[2021-12-16] MEDS ORDERED: PREGABALIN 300 MG PO SCH (21:00)
[2021-12-17 05:24] LABS: Absolute Lymphocytes (CBC) 0.6 K/uL (0.7-4.9); Hematocrit 23.6 % (39.6-49.0); Lymphocytes % 8.9 % (15.3-44.8); MPV 6.8 fL (7.6-11.3); RBC Red Blood Cell Count 2.69 M/uL (4.33-5.43)
[2021-12-17 05:27] LABS: Protime INR 1.47
[2021-12-17 05:55] LABS: Bilirubin Total 0.2 mg/dL (0.2-1.0); Potassium 3.8 mmol/L (3.5-5.1); Protein, Total 6.5 g/dL (6.4-8.2)
[2021-12-17] MEDS ORDERED: NA CHLORIDE 0.9% 100 ML ONE (08:05)
[2021-12-17] MEDS: PREGABALIN 150 MG CAP PO SCH ×3 (08:23→21:15)
[2021-12-17] MEDS: levoFLOXacin 750 MG TAB PO SCH (08:23)
[2021-12-17] MEDS: PREGABALIN 50 MG CAP PO SCH ×3 (08:23→21:15)
[2021-12-17] MEDS: LACTOBACILLUS/ACIDOPHILUS TAB PO SCH ×2 (08:24→21:16)
[2021-12-17] MEDS: HYDROCODONE/APAP 7.5/325 MG TAB PO SCH ×3 (08:24→21:14)
[2021-12-17] MEDS: AMIODARONE HCL 200 MG TAB PO SCH (08:24)
[2021-12-17] MEDS: CLOPIDOGREL 75 MG TABLET PO SCH (08:24)
[2021-12-17] MEDS: ASPIRIN EC 325 MG TABLET PO SCH (08:25)
[2021-12-17] MEDS: ENOXAPARIN 40 MG/0.4 ML SQ SCH (08:25)
[2021-12-17] MEDS ORDERED: HOME MED 1 EA UNK (Amiodarone Hcl [Amiodarone Hcl] 100 MG Tablet) PO SCH (09:00)
[2021-12-17] MEDS ORDERED: DAPTOMYCIN 500 MG/VIAL IVPB SCH (09:00)
[2021-12-17] MEDS: DAPTOmycin 500 MG in NA CHLORIDE 0.9% 100 ML IVPB SCH (09:19)
--- NOTE | 2021-12-17 12:00 | RAD REPORT ---
EXAM DESCRIPTION: CT - Head Brain Wo Cont - 12/17/2021 11:49 am CLINICAL HISTORY: CVA COMPARISON: December 16, 2021 TECHNIQUE: Computed axial tomography of the head was obtained. IV contrast was not requested. All CT scans are performed using dose optimization technique as appropriate and may include automated exposure control or mA/KV adjustment according to patient size. FINDINGS: An intracranial bleed is not seen . The ventricles are normal in caliber. No extra-axial fluid collection is noted. Vague small low-density area left thalamus unchanged is equivocal for an acute infarct. Old lacunar infarcts right caudate basal ganglia unchanged. Fluid within the sinuses/ mastoids is not seen. IMPRESSION: Vague small low-density area left thalamus is equivocal for an acute lacunar infarct lef t thalamus. If clinically indicated a MRI be obtained for further evaluation.
--- NOTE | 2021-12-17 14:13 | P.PN ---
Subjective Date of Service: 12/17/21 Chief Complaint: Left hand weakness Subjective: No new changes Physical Examination - Vital Signs Temperature: 97.1 F Blood Pressure: 110/62 Pulse: 72 Respirations: 14 Pulse Ox (%): 98 - Studies Microbiology Data (last 24 hrs): 12/16/21 08:25 Nasopharnyx Influenza Type A Antigen Screen - Final 12/16/21 08:25 Nasopharnyx Influenza Type B Antigen Screen - Final Assessment And Plan Physician Review: Patient Assessed, Agree with Above Assessment and Plan Physician Review Additional Text: Physical Exam General: Alert, In no apparent distress, Oriented x3 HEENT: Atraumatic, Normocephalic, PERRLA Neck: Supple, JVD not distended Respiratory: Clear to auscultation bilaterally, Normal air movement Cardiovascular: Normal pulses, Regular rate/rhythm, Normal S1 S2 Gastrointestinal: Normal bowel sounds, Soft and benign, Non-distended, No ascites Integumentary: No rashes, No breakdown Neurological: Normal speech, Normal tone, Sensation intact, Other (left hand gri p weakness with apraxia, others 4/5- defect with dorsiflexion of right hand ) Assessment and Plan Impression Presumed left CVA with right hand weakness Right base pneumonia with effusionon IV daptomycin Hypertension History of CADstable History of COPDstable History of lung cancer Chronic pain syndromeindwelling morphine pump Plan follow pending repeat head CT Moderate to severe stenosis of left ICA, may need vascular evaluation continue pending echocardiogram Continue aspirin and Plavix Continue daptomycin until 12/19 to finish course for right base pneumonia Nicotine patch for tobacco use Lovenox for DVT prophylaxis Time Spent Managing PTS Care (In Minutes): 35
[2021-12-17 16:47] LABS: Ferritin 356.7 ng/mL (26-388)
[2021-12-17] MEDS: THIAMINE HCL 100 MG TABLET PO SCH (16:51)
[2021-12-17] MEDS: FOLIC ACID 1 MG TABLET PO SCH (16:51)
[2021-12-17] MEDS: SOD FERRIC GLUC COMPLX/SUCROSE 250 MG in NA CHLORIDE 0.9% 250 ML IV SCH (16:51)
[2021-12-17] MEDS ORDERED: SUCROSE IV SCH (17:00)
[2021-12-17] MEDS ORDERED: NA CHLORIDE 0.9% IV SCH (17:00)
[2021-12-17] MEDS ORDERED: SOD FERRIC GLUC COMPLX IV SCH (17:00)
--- NOTE | 2021-12-17 18:01 | EKG ---
Test Date: 2021-12-16 Test Time: 07:49:03 Floor Coverer Apprentice: PUJA MEASUREMENT RESULTS: Intervals: Rate: 59 LA: 168 QRSD: 106 QT: 440 QTc: 435 [place]: P: 68 LA: 168 QRS: 76 T: 72 INTERPRETIVE STATEMENTS: Sinus bradycardia with sinus arrhythmia Otherwise normal ECG Compared to ECG 12/02/2021 12:02:38 Sinus rhythm no longer present Left ventricular hypertrophy no longer present Myocardial infarct finding no longer present Electronically Signed On 12-17-21 17:58:40 CDT by Rajesh Bradley
[2021-12-17] MEDS: TRAZODONE 50 MG TABLET PO SCH (21:14)
[2021-12-17] MEDS: ATORVASTATIN 40 MG TAB PO SCH (21:16)
--- NOTE | 2021-12-17 22:54 | CON ---
Reason For Consultation: Consultation called because of left hand weakness. History Of Present Illness: Mr. Palomo is a 66-year-old patient with lung cancer, status post lobectom y. He does have significant weight loss. He has an indwelling subcutaneous morphine pump for chroni c pain, chronic tobacco abuse, coronary artery disease, hypertension, and recently had PICC line for IV treatment as and was put in 7 days prior to his admission. Patient reportedly woke up and noted right hand weakness. Has difficulty lifting his right hand, still had stonecutter hand strengths. He did not immediately seek medical attention, but came to Hospital at the urging of his about a day and a half later. His head CT scan showed no acute ischemic or hemorrhagic change. Chr onic strokes were identified and he was admitted for stroke workup. Because of his pump and implanta tion, he is unable to get an MRI at this hospital. Workup did reveal on CT angiogram, no significant head vessel blood flow abnormalities. Neck CT angiogram showed moderate hard plaque in the proximal left internal carotid artery estimated about 30% and moderate hard plaque in the right proximal inte rnal carotid artery estimated to be 50 or so percent. He has not had improvement in his symptoms sin ce hospitalization. Past Medical History: As noted. Coronary artery disease. Past Surgical History: Morphine pump in the right lower quadrant, coronary artery stents x4, right l obectomy for lung cancer. Allergies: NO KNOWN DRUG ALLERGIES. Medications: At home amiodarone 200 mg daily, aspirin 81 mg daily, Atorvastatin at bedtime 40 mg, Pl avix 75 mg daily, etodolac twice daily, [place] 7/325 three times daily, vitamin B12 daily, Lyrica 200 mg 3 times daily, tizanidine, daily trazodone 100 mg at bedtime, Tessalon Perles 100 mg 3 times daily , daptomycin 500 mg IV daily, Colace 100 mg daily, Advair Diskus 250/50 one puff twice daily, and has been on Levaquin 750 mg daily from 12/08/2021. Family History: Noncontributory. Social History: The patient smokes half a pack of cigarettes daily. Denies alcohol use. Review of Systems: Positive for significant weight loss. Some mild myalgias, arthralgias. No rash. No headache. No p sychiatric issues and weakness as noted in the right wrist extension. Physical Examination: Vital Signs: Blood pressure 122/69, pulse 64, respiratory rate 16, temperature 98.4, oxygen saturati on 97% to 98% on room air. Weight 143 pounds, height 6 feet, BMI 19.5. General: Mr. Palomo is resting in bed. He appears cachectic. Sunken yarsani regions and scaphoid abdo men. HEENT: He is otherwise normocephalic, atraumatic. Sclerae anicteric. Oropharynx is pink and moist. Neck: Supple. Chest: Clear. Heart: Regular. Extremities: Show no significant edema or cyanosis. Neurological: He is alert and oriented to situation, place, and person. He follows commands appropr iately. On cranial nerve examination, no obvious focal deficits on 2 through 12. Motor examination, he has 1/5 right wrist and finger extension. Otherwise, his stonecutter hand is 5/5 biceps, triceps, deltoid on the right 5/5 and on the left, 5/5. Lower extremity strength is 4+/5 proximally and distally. Sens ation intact in the upper and lower extremities bilaterally. His reflexes are depressed in upper and lower extremities with gait. He did have no significant difficulty with his ambulation. He did amb ulate with supervision. Assessment: Mr. 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 He does not have a new stroke clinically. His repeat CT scan does show what is more likely chronic strokes bilaterally in the subcortical regions including left t halamus and right caudate basal ganglia. Mr. 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 The patient was told that alcohol consumption along with chemo m akes it more likely for these compressions to extend over a longer time and make it difficult to preet tabby. He should stop drinking alcohol and smoking cigarettes and work on physical therapy to help rec over the right wrist extension and finger extension. He may be discharged home. Follow up with Dr. Salvador's clinic 1 month later. LB/KYLIE Voice ID: [id number] Report ID: [id number]
[2021-12-18 06:29] LABS: Absolute Lymphocytes (CBC) 0.6 K/uL (0.7-4.9); Hematocrit 27.5 % (39.6-49.0); Lymphocytes % 9.1 % (15.3-44.8); MPV 6.9 fL (7.6-11.3); RBC Red Blood Cell Count 3.14 M/uL (4.33-5.43)
[2021-12-18 06:48] LABS: Bilirubin Total 0.2 mg/dL (0.2-1.0); Potassium 3.8 mmol/L (3.5-5.1); Protein, Total 6.6 g/dL (6.4-8.2)
[2021-12-18] MEDS ORDERED: SOD FERRIC GLUC COMPLX/SUCROSE 250 MG in NA CHLORIDE 0.9% 250 ML IV SCH (09:00)
[2021-12-18] MEDS: ENOXAPARIN 40 MG/0.4 ML SQ SCH (09:13)
[2021-12-18] MEDS: SOD FERRIC GLUC COMPLX/SUCROSE 250 MG in NA CHLORIDE 0.9% 250 ML IV SCH (09:13)
[2021-12-18] MEDS: DAPTOmycin 500 MG in NA CHLORIDE 0.9% 100 ML IVPB SCH (09:13)
[2021-12-18] MEDS: PREGABALIN 150 MG CAP PO SCH (09:13)
[2021-12-18] MEDS: levoFLOXacin 750 MG TAB PO SCH (09:14)
[2021-12-18] MEDS: PREGABALIN 50 MG CAP PO SCH (09:14)
[2021-12-18] MEDS: HYDROCODONE/APAP 7.5/325 MG TAB PO SCH (09:14)
[2021-12-18] MEDS: ASPIRIN EC 325 MG TABLET PO SCH (09:14)
[2021-12-18] MEDS: LACTOBACILLUS/ACIDOPHILUS TAB PO SCH (09:15)
[2021-12-18] MEDS: AMIODARONE HCL 200 MG TAB PO SCH (09:15)
[2021-12-18] MEDS: THIAMINE HCL 100 MG TABLET PO SCH (09:15)
[2021-12-18] MEDS: CLOPIDOGREL 75 MG TABLET PO SCH (09:15)
[2021-12-18] MEDS: FOLIC ACID 1 MG TABLET PO SCH (09:15)
--- NOTE | 2021-12-18 11:54 | P.DS ---
Admission Date: 12/16/21 Discharge Date: 12/18/21 Disposition: DC HOME/HOME HEALTH CARE Discharge Condition: FAIR Reason for Admission: Left hand weakness Brief History of Present Illness: 66-year-old male with history of lung cancer status post lobectomy, CAD, chronic tobacco use, chronic pain syndrome with indwelling subcutaneous morphine pump, hypertension, recent right lower lobe pneumonia with pleural effusion on IV Dapto via PICC line since the last 7 days, developed right hand weakness with difficulty with cramps last p.m. while sitting in the room. Symptoms were noted by the spouse. Patient symptoms continue to persist overnight and he was brought to the emergency room this morning. Initial head CT shows no acute infarct. Handgrip noted to be markedly weak. Patient denies any headache dizziness: Loss of consciousness. He denies any chest pain or shortness of breath. He has been admitted for presumed left CVA. Head CTA shows no vertebral flow abnormality. CT of the neck shows Moderate hard plaque is seen proximal left internal carotid artery estimating and stenosis estimated at 30% on the left. Moderate hard plaque right proximal internal carotid artery results instenosis estimated at 50-70%. Hospital Course: Hospital course Patient was admitted with weakness of the right arm. Initial difficulty with handgrip as well as extension of the right hand was noted. Head CT shows no acute abnormality outside chronic microvascular ischemic changes. CTA of the head and neck shows no significant stenosis. 24-hour repeat head CT shows small vague infarct in the left thalamus. 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 Need for alcohol cessation as well as tobacco cessation was discussed in detail. Patient was evaluated by physical as well as Occupational Therapy. Outpatient occupational therapy advised. His ambulation as well as st rength in all other extremities with intact. Patient was noted with anemia with hemoglobin of 8.2 which dropped to 7.7. Work-up shows significant iron deficiency. He was started on IV iron loading doses with improvement in his hemoglobin subsequently to 9.2. He was started on p.o. iron as well as folic acid/thiamine given his history of alcohol abuse. Need for alcohol cessation was extensively discussed. We discharged home today to continue his outpatient therapy. Of note patient was previously on outpatient daptomycin/Levaquin for recent MRSA pneumonia with bacteremia. He finished his antibiotics course while inpatient. Antibiotics has been discontinued now after completion of course. His PICC line will be removed prior to discharge. 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 History of chronic alcohol and tobacco use History of chemotherapy for lung cancer, status post right lobectomy On IV antibiotics Dapto/Levaquin for recent pneumonia with bacteremiacompleted course today Hypertension History of CADstable History of COPDstable History of lung cancer Chronic pain syndromeindwelling morphine pump Vital Signs/Physical Exam: Temp Pulse Resp BP Pulse Ox 97 F 61 14 117/60 94 12/18/21 08:00 12/18/21 08:00 12/18/21 10:14 12/18/21 08:00 12/18/21 10:14 Laboratory Data at Discharge: WBC 6.1 K/uL (4.3-10.9) 12/18/21 05:35 Hgb 9.0 g/dL (13.6-17.9) L 12/18/21 05:35 Hct 27.5 % (39.6-49.0) L D 12/18/21 05:35 Plt Count 448 K/uL (152-406) H 12/18/21 05:35 PT 16.3 SECONDS (9.5-12.5) H 12/17/21 04:45 INR 1.47 12/17/21 04:45 APTT 32.4 SECONDS (24.3-36.9) 12/17/21 04:45 Sodium 140 mmol/L (136-145) 12/18/21 05:35 Potassium 3.8 mmol/L (3.5-5.1) 12/18/21 05:35 BUN 13 mg/dL (7-18) 12/18/21 05:35 Creatinine 0.65 mg/dL (0.55-1.3) 12/18/21 05:35 Glucose 82 mg/dL (74-106) 12/18/21 05:35 Total Bilirubin 0.2 mg/dL (0.2-1.0) 12/18/21 05:35 AST 14 U/L (15-37) L 12/18/21 05:35 ALT 12 U/L (12-78) 12/18/21 05:35 Alkaline Phosphatase 73 U/L (45-117) 12/18/21 05:35 Triglycerides 106 mg/dL (<150) 12/17/21 04:45 Cholesterol 97 mg/dL (<200) 12/17/21 04:45 HDL Cholesterol 28 mg/dL (40-60) L 12/17/21 04:45 Cholesterol/HDL Ratio 3.46 12/17/21 04:45 Home Medications: Amiodarone HCl 200 mg PO DAILY 12/03/21 Aspirin 1 tab PO DAILY 12/03/21 Atorvastatin Calcium 1 tab PO BEDTIME 12/03/21 Clopidogrel Bisulfate [Plavix*] 75 mg PO DAILY 12/03/21 Etodolac 1 tab PO BID 12/03/21 Hydrocodone 7.5/APAP 325 [[place] 7.5/325 mg*] 1 tab PO TID 12/03/21 Mecobalamin [B12 Active] 1 tab PO DAILY 12/03/21 Pregabalin [Lyrica] 200 mg PO TID 12/03/21 Tizanidine HCl 1 tab PO DAILY 12/03/21 Trazodone HCl 100 mg PO BEDTIME 12/03/21 Benzonatate [Tessalon Perle*] 100 mg PO TID PRN #30 cap 12/08/21 Docusate [Colace Cap*] 100 mg PO DAILY PRN #30 cap 12/08/21 Fluticasone/Salmeterol [Advair 250-50 Diskus] 1 each IH BID #60 disk.w.dev 12/08/21 L. Acidophilus/Bifid. Animalis [Dialyvite Chewable Probiotic] 1 each PO BID #60 tab.chew 12/08/21 Amlodipine [Norvasc*] 12/17/21 Metoprolol Tartrate 100 mg PO 12/17/21 hydroCHLOROthiazide [Hydrochlorothiazide] 25 mg PO 12/17/21 Ferrous Gluconate 324 mg PO DAILY #30 tablet 12/18/21 Folic Acid 1 mg PO DAILY #30 tablet 12/18/21 Thiamine HCl [Vitamin B-1*] 100 mg PO DAILY #30 tablet 12/18/21 New Medications: Ferrous Gluconate 324 mg PO DAILY #30 tablet Folic Acid 1 mg PO DAILY #30 tablet Thiamine HCl [Vitamin B-1*] 100 mg PO DAILY #30 tablet Physician Discharge Instructions: Cessation of alcohol and tobacco use Follow with outpatient occupational therapy Diet: ADA Activity: Ad loly Followup: Piedad Hamm MD [Primary Care Provider] - Maximiliano Salvador MD [ASSOCIATE-ACTIVE - CAN ADMIT] - 1-2 Weeks Physician Review: Patient Assessed, Agree with Above Assessment and Plan Time spent managing pt's care (in minutes): 35
[2021-12-18 14:24] VITALS: BP 121/63; TEMP 98.4
[2021-12-18 16:19] VITALS: O2SAT 94
--- NOTE | 2021-12-21 07:07 | ECHO ---
HEIGHT: 6 ft 0 in WEIGHT: 143 lb 11.2 oz DATE OF STUDY: 12/17/[address]: Jammie Israel MD 2-DIMENSIONAL: YES M.MODE: YES DOPPLER: YES COLOR FLOW: YES TDS: PORTABLE: YES DEFINITY: BUBBLE STUDY: DIAGNOSIS: CHEST PAIN CARDIAC HISTORY: CATHERIZATION: SURGERY: PROSTHETIC VALVE: PACEMAKER: MEASUREMENTS (cm) DIASTOLIC (NORMALS) SYSTOLIC (NORMALS) IVSd 1.0 (0.6-1.2) LA Diam 3.5 (1.9-4.0) LVEF 56% LVIDd 4.7 (3.5-5.7) LVIDs 3.3 (2.0-3.5) %FS 29% LVPWd 1.0 (0.6-1.2) Ao Diam 2.7 (2.0-3.7) 2 DIMENSIONAL ASSESSMENT: RIGHT ATRIUM: NORMAL LEFT ATRIUM: NORMAL RIGHT VENTRICLE: NORMAL LEFT VENTRICLE: NORMAL TRICUSPID VALVE: NORMAL MITRAL VALVE: NORMAL PULMONIC VALVE: NORMAL AORTIC VALVE: NORMAL PERICARDIAL EFFUSION: NONE AORTIC ROOT: NORMAL LEFT VENTRICULAR WALL MOTION: NORMAL DOPPLER/COLOR FLOW: MILD TRICUSPID REGURGITATION COMMENTS: NORMAL LEFT VENTRICULAR EJECTON FRACTION 55-60%. NORMAL WALL MOTION. MILD TRICUSPID REGURGITATION. TECHNOLOGIST: FANI JUAN
== END 2021-12-18 13:48 | disposition home health service (06) | DRG 64 ==
LOC: ER 06:56 → ERHOLD 09:12 → 2ND 17:15
PROVIDERS: ADMIT Internal Medicine; ATTEND Internal Medicine
DX: I63.81 Other cerebral infarction due to occlusion or stenosis of small artery (principal); J18.9 Pneumonia, unspecified organism; J44.0 Chronic obstructive pulmonary disease with (acute) lower respiratory infection; R29.701 NIHSS score 1; G56.31 Lesion of radial nerve, right upper limb; I25.10 Atherosclerotic heart disease of native coronary artery without angina pectoris; I10 Essential (primary) hypertension; G89.4 Chronic pain syndrome; D50.9 Iron deficiency anemia, unspecified; Z72.0 Tobacco use; Z72.89 Other problems related to lifestyle; Z95.5 Presence of coronary angioplasty implant and graft; Z85.118 Personal history of other malignant neoplasm of bronchus and lung; Z92.21 Personal history of antineoplastic chemotherapy; Z20.822 Contact with and (suspected) exposure to COVID-19; Z97.8 Presence of other specified devices; F10.21 Alcohol dependence, in remission
CPT/HCPCS: 36415; 70450; 70496; 70498; 71045; 80048; 80053; 80061; 82728; 82805; 82947; 83540; 83605; 84466; 85025; 85610; 85730; 86850; 86900; 86901; 87040; 87804; 93005; 93306; 94760; 94762; 96365; 96375; 97110; 97161; 97165; 99285; J0878; J1650; J2916; J3490; J7050; Q9967; U0003